=== PATIENT | female | born 1970 | race Caucasian/White ===

== ENCOUNTER → 2017-11-01 | Outpatient (CLI) | payer BC ==
--- NOTE | 2017-11-01 13:45 | MM ---
Reason for exam: screening (asymptomatic). Baseline mammogram. Physical Findings: Dr. Urias did not find any significant physical abnormalities on exam. MG 3D Screening Mammo W/Cad Bilateral CC and MLO view(s) were taken. The breast tissue is heterogeneously dense. This may lower the sensitivity of mammography. Small calcification nodule. There is no discrete abnormality including area of concern. No significant new findings when compared with previous films. These results were verbally communicated with the patient and result sheet given to the patient on 11/01/17. ASSESSMENT: Benign, BI-RAD 2 RECOMMENDATION: Routine screening mammogram of both breasts in 1 year.
--- NOTE | 2017-11-02 09:29 | WWHP ---
[facility] - HISTORY AND PHYSICAL DATE OF DICTATION: 11/01/2017 CHIEF COMPLAINT: The patient is here for her routine gynecologic exam and mammogram. HPI: This is a 46-year-old, G2, P2 with an LMP of 10/07/2018. Her is status post vasectomy. The patient is status post endometrial ablation for hypermenorrhea. She states her periods are regular every month, lasting 4 to 5 days with light to average flow. Her periods are trader than prior to the ablation. She is without gynecologic complaints. It has been about 5 years since her last pelvic exam. PAST MEDICAL HISTORY: Elevated cholesterol, IBS, and vitamin D deficiency. MEDICATIONS: Fenofibrate 160 mg daily, vitamin D2, 1.25 mg weekly. ALLERGIES: TO DEMEROL, WHICH CAUSED THROAT SWELLING. PAST SURGICAL HISTORY: Endometrial ablation in 2011, laparoscopic cholecystectomy in the past and jaw surgery in the past. PAST OB HISTORY: 2 vaginal deliveries. 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 She has no history of STDs. SOCIAL HISTORY: She briefly smoked but quit in high school. She has about 3 to 4 alcohol-containing drinks per month and denies drug use. 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 FAMILY HISTORY: Brother of heart problems including mitral valve prolapse and an enlarged heart. Grandparents had heart disease and father had CHF. Father also has type 2 diabetes. A grandfather had prostate cancer. REVIEW OF SYSTEMS: Weight has been stable, but she has been trying to lose weight. She denies respiratory, cardiac or GI problems. PHYSICAL EXAM: Blood pressure 143/87, height 5 feet 7 inches, weight 226 pounds, BMI 35. Temperature 97.3, pulse 78. This is a well-developed, heavyset white female, who is alert and oriented x3, in no acute distress. HEENT: Within normal limits. NECK: Supple without mass or thyromegaly. Chest and LUNGS: Clear to auscultation. HEART: Regular rate and rhythm. Breasts are without mass or discharge. Axillary exam is negative for adenopathy. Back negative for CVA tenderness. ABDOMEN: Soft, nontender, without palpable masses. Pelvic exam: Normal external genitalia. Cervix appears multiparous without lesions. Vagina appears normal. There is no evidence of prolapse. The uterus is multiparous, nongravid size and nontender. There are no palpable adnexal masses or tenderness. Rectal exam is negative for mass or tenderness and is negative for occult blood. Extremities nontender. IMPRESSION: 1. 46-year-old gynecologically healthy female. 2. The patient is status post endometrial ablation for hypermenorrhea and her periods have been trader after the procedure. 3. Mildly elevated blood pressure. PLAN: 1. Pap smear was performed. 2. Self breast examination was discussed. 3. Mammogram will be done today. 4. Her elevated blood pressure was discussed. I have recommended that she have her blood pressure checked on a regular basis and if it is elevated, she will follow up with Dr. Teresa for this. 5. Weight control was discussed with the patient. We have discussed the importance of good nutrition. I have also recommended that she consider Weight Watchers. 6. She will return in 1 year. MMODL / IJN: [id number] /
== END | disposition home or self-care (01) ==
LOC: WWCWWP 12:20
PROVIDERS: ATTEND Obstetrics & Gynecology
DX: Z12.31 Encounter for screening mammogram for malignant neoplasm of breast (principal)
CPT/HCPCS: 77063; 77067

== ENCOUNTER → 2019-06-04 | Outpatient (CLI) | payer BC ==
--- NOTE | 2019-06-04 14:45 | CT ---
EXAMINATION TYPE: CT urogram wo/w con DATE OF EXAM: 06/04/2019 COMPARISON: 04/27/2015 HISTORY: Rt flank pain, hematuria, history of renal stones CT DLP: 3238.8 mGycm Automated exposure control for dose reduction was used. CONTRAST: Performed without and with IV Contrast, patient injected with 100 mL of Isovue 300. FINDINGS: Limited CT sections are obtained the lung bases which are clear CT ABDOMEN: The appendix is normal. Liver spleen pancreas adrenal glands are normal. Gallbladder is s urgically absent. Loops of bowel within the abdomen without oral contrast are normal There is a cyst on the superior pole posterior left kidney measuring 1.1 cm and 18 Hounsfield units. There is a 0.5 cm nonobstructing renal stone at the inferior pole left kidney. There is a nonobstruct ing 0.3 cm calcification at the inferior pole right kidney. There is moderate right hydroureter. Alejandra yed images were obtained through the kidneys. Additional cortical renal cysts are evident on the left . Delayed images were obtained through the kidneys ureters and bladder. At the level of the prominent uterus the right ureter becomes narrowed. This may be extrinsic compression on the right ureter caus ing a moderate right hydroureter. IMPRESSION: 1. THERE IS LIKELY EXTRINSIC COMPRESSION ON THE DISTAL RIGHT HEMIPELVIS URETER FROM AN ENLARGED UTERU S CAUSING MODERATE RIGHT HYDROURETER AND DELAYED EXCRETION ON THE RIGHT RENAL COLLECTING SYSTEM SELENA RED TO THE LEFT. 2. NONOBSTRUCTING RENAL STONES ARE PRESENT AT THE INFERIOR POLES BILATERAL KIDNEYS DISCUSSED ABOVE. 3. MULTIPLE CORTICAL RENAL CYSTS PRESENT ON THE LEFT.
== END | disposition home or self-care (01) ==
LOC: RADCTMAIN 06:16
PROVIDERS: ATTEND Family Medicine
DX: N20.0 Calculus of kidney (principal); N28.1 Cyst of kidney, acquired
CPT/HCPCS: 74178; 74400; Q9967

== ENCOUNTER → 2019-07-14 | Outpatient (CLI) | payer BC | END | disposition home or self-care (01) | LOC: RADMAMWWP 10:00 | PROVIDERS: ATTEND Obstetrics & Gynecology | DX: Z53.9 Procedure and treatment not carried out, unspecified reason (principal) ==

== ENCOUNTER → 2019-07-31 | Outpatient (CLI) | payer BC ==
[2019-07-31 08:55] VITALS: BP 149/90; PULSE 91; RESP 18; TEMP 98.1; BMI 35.9
--- NOTE | 2019-07-31 09:35 | P.HPOB ---
History of Present Illness H&P Date: 07/31/19 Chief Complaint: The patient is here for her routine gynecologic exam. This is a 48-year-old with an LMP of 07/05/2019. The patient's is status post vasectomy. The patient states her menstrual periods are regular every month and fairly light since her endometrial ablation. She is without gynecologic complaints. She recently was having some right abdominal discomfort and was found to have a right hydroureter by CT scan in May which was found to be caused by kidney stones. She had a stent placed and was left in for 10 days. She has felt better since then. Review of Systems She has gained 3 pounds over the last year. She denies respiratory, cardiac, or GI problems. Past Medical History Past Medical History: Hyperlipidemia, Thyroid Disorder Additional Past Medical History / Comment(s): Kidney stones. IBS. 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 History of Any Multi-Drug Resistant Organisms: None Reported Past Surgical History: Cholecystectomy, Uterine Ablation Additional Past Surgical History / Comment(s): jaw sx. Surgery for kidney stones. Endometrial ablation 2011. Past Psychological History: No Psychological Hx Reported Smoking Status: Former smoker Past Alcohol Use History: Occasional (5 per month.) Additional Past Alcohol Use History / Comment(s): Quit smoking in high school. 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 - Past Family History Brother(s) Additional Family Medical History / Comment(s): Heart problems including an enlarged heart and mitral valve prolapse. . Father Family Medical History: Diabetes Mellitus Additional Family Medical History / Comment(s): Grandfather had prostate cancer. Grandparents also had heart disease. Medications and Allergies Home Medications Medication Instructions Recorded Confirmed Type Ibuprofen [Motrin] 800 mg PO Q6HR PRN #20 tab 04/27/15 07/31/19 Rx Ergocalciferol [Vitamin D2 1.25 mg PO DAILY 07/31/19 07/31/19 History (DRISDOL)] Fenofibrate 160 mg PO DAILY 07/31/19 07/31/19 History Hydrochlorothiazide 25 mg PO DAILY 07/31/19 07/31/19 History metroNIDAZOLE [Metrogel 1%] 1 applic TOPICAL DAILY 07/31/19 07/31/19 History Allergies Allergy/AdvReac Type Severity Reaction Status Date / Time meperidine HCl [From Demerol] Allergy Anaphylaxis Verified 07/31/19 08:55 Exam Vital Signs Temp Pulse Resp BP Pulse Ox 07/31/19 08:50 98.1 F 91 18 149/90 98 Intake and Output 07/30/19 07/31/19 07/31/19 22:59 06:59 14:59 Other: Weight 103.873 kg Height 5 feet 7 inches, weight 229 pounds, BMI 35.9. This is a well-developed well-nourished white female who is alert and oriented times 3 in no acute distress. HEENT: Within normal limits. NECK: Supple without mass or thyromegaly. CHEST AND LUNGS: Clear to auscultation. HEART: Regular rate and rhythm. BREASTS: Are without mass or discharge. AXILLARY EXAM: Negative for adenopathy. BACK: Negative for CVA tenderness. ABDOMEN: Soft, nontender, without palpable masses. PELVIC EXAM: Normal external genitalia. Cervix and vagina appear normal. There is a small amount of old menstrual type blood in the vagina. There is no unusual discharge. There is no evidence of prolapse. The uterus is midposition, nongravid size and nontender. There are no palpable adnexal masses or tenderness. RECTAL EXAM: Rectovaginal exam is negative for mass or tenderness and is negative for occult blood. EXTREMITIES: Nontender. IMPRESSION: 1. 48-year-old female whose is status post vasectomy with normal gynecologic exam. 2. History of kidney stones. PLAN: 1. Pap smear was deferred since she had a normal one on 11/01/2017. 2. Self breast awareness was discussed with the patient. 3. Screening mammogram is due and this is scheduled for 08/14/2019. The order slip was given to the patient for this. 4. Osteoporosis prevention was discussed. I have stressed the importance of adequate calcium, vitamin D and regular exercise. Recommended amounts of calcium and vitamin D were also discussed. 5. The patient will keep a menstrual calendar and call if menstrual problems. 6. She was advised to return in one year for her annual well woman exam.
== END | disposition home or self-care (01) ==
LOC: WWCWWP 08:24
PROVIDERS: ATTEND Obstetrics & Gynecology
DX: Z53.9 Procedure and treatment not carried out, unspecified reason (principal)

== ENCOUNTER → 2019-08-07 | Outpatient (CLI) | payer BC ==
--- NOTE | 2019-08-07 10:32 | US ---
EXAMINATION TYPE: US kidneys/renal and bladder DATE OF EXAM: 08/07/2019 COMPARISON: NONE CLINICAL HISTORY: N20.1 Calculus of ureter. Hx renal stones with stent within right kidney x 4 weeks ago. No pain today. EXAM MEASUREMENTS: Right Kidney: 11.1 x 4.6 x 4.9 cm Left Kidney: 10.7 x 4.9 x 5.2 cm Right Kidney: No hydronephrosis or masses seen Left Kidney: lower pole echogenic focus with slight shadow measures 0.6 cm. Lateral upper pole cysti c appearing lesion measuring 1.1 x 1.1 x 1.1 cm with increased through transmission. Bladder: Partially distended, anechoic Bilateral Jets seen There is no evidence for hydronephrosis at this point in time. No nephrolithiasis is seen. No manoj s are identified. The urinary bladder is anechoic. Bilateral ureteral jets are seen. IMPRESSION: Solitary nonobstructing 6 mm left renal calculus and benign-appearing 1.1 cm left renal cyst. No hydr onephrosis of either kidney.
== END | disposition home or self-care (01) ==
LOC: RADUSWWP 09:26
PROVIDERS: ATTEND Urology
DX: N20.0 Calculus of kidney (principal); N28.1 Cyst of kidney, acquired
CPT/HCPCS: 76770

== ENCOUNTER → 2019-08-14 | Outpatient (CLI) | payer BC ==
--- NOTE | 2019-08-15 15:06 | MM ---
Reason for exam: screening (asymptomatic). Last mammogram was performed 1 year and 9 months ago. Physical Findings: A clinical breast exam by your physician is recommended on an annual basis and results should be correlated with mammographic findings. MG Screening Mammo w CAD Bilateral CC and MLO view(s) were taken. Prior study comparison: November 01, 2017, bilateral MG 3d screening mammo w/cad. The breast tissue is heterogeneously dense. This may lower the sensitivity of mammography. Benign appearing calcifications in the right breast. No suspicious abnormality. No significant changes when compared with prior studies. ASSESSMENT: Benign, BI-RAD 2 RECOMMENDATION: Routine screening mammogram of both breasts in 1 year.
== END | disposition home or self-care (01) ==
LOC: RADMAMWWP 07:16
PROVIDERS: ATTEND Obstetrics & Gynecology
DX: Z12.31 Encounter for screening mammogram for malignant neoplasm of breast (principal)
CPT/HCPCS: 77067

== ENCOUNTER → 2019-08-14 | Outpatient (CLI) | payer BC ==
[2019-08-14 14:38] LABS: Basophils # (A) 0.1 k/uL (0-0.2); Basophils % (A) 1 %; Eosinophils # (A) 0.1 k/uL (0-0.7); Eosinophils % (A) 1 %; HCT 41.6 % (34.0-46.0); HGB 14.1 gm/dL (11.4-16.0); Lymphocytes # (A) 3.2 k/uL (1.0-4.8); Lymphocytes % (A) 33 %; MCH 30.4 pg (25.0-35.0); MCHC 33.9 g/dL (31.0-37.0); MCV 89.7 fL (80.0-100.0); Mean Platelet Volume 5.8; Monocytes # (A) 0.4 k/uL (0-1.0); Monocytes % (A) 4 %; Neutrophils # (A) 5.8 k/uL (1.3-7.7); Neutrophils % (A) 59 %; Platelet Count 323 k/uL (150-450); RBC 4.63 m/uL (3.80-5.40); RDW 12.7 % (11.5-15.5); WBC 9.7 k/uL (3.8-10.6)
[2019-08-14 14:52] LABS: African American GFR (CKD) >90 (>60 ml/min/1.73 sqM); Anion Gap 8 mmol/L; Blood Urea Nitrogen 12 mg/dL (7-17); Carbon Dioxide 26 mmol/L (22-30); Chloride 106 mmol/L (98-107); Potassium 3.9 mmol/L (3.5-5.1); Sodium 140 mmol/L (137-145)
== END | disposition home or self-care (01) ==
LOC: LABPAT 14:08
PROVIDERS: ATTEND Urology
DX: Z01.812 Encounter for preprocedural laboratory examination (principal); N20.0 Calculus of kidney
CPT/HCPCS: 36415; 80051; 82565; 84520; 85025

== ENCOUNTER 2019-08-27 08:52 | Day surgery (SDC) | payer BC ==
[2019-08-24 12:36] VITALS: BMI 35.2
--- NOTE | 2019-08-24 14:44 | P.HPIHPCON ---
History of Present Illness H&P Date: 08/27/19 Chief Complaint: left renal stone Ms Elvin is 48 yo female with hx of 7 mm left sided renal stone in the lower pole of the kidney. Of note she has hx of right sided ureteral stone and she is S/P right ureteroscopy. I discussed with her the options to address her left sided stone including observation, ESWL and ureteroscopy. I discussed risk and benefit of each. She agreed to proceed with left sided ESWL. I discussed with her the risk of bleeding, infection and renal hematoma Consent for Procedure: I have explained the operation/procedure to the patient, including the risks, benefits, side effects, alternative therapies (including not receiving the proposed treatment or service), the likelihood of the patient achieving his/her goals, and potential recuperation problems for the procedure/sedation/analgesia, as well as any blood products, if indicated. I also explained to the patient the risks, benefits and side effects of the alternatives, as well as the risks related to not receiving the proposed procedure, care, treatment, or services. - Constitutional Constitutional: Denies chills, Denies fever - Cardiovascular Cardiovascular: Denies chest pain, Denies edema - Gastrointestinal Gastrointestinal: Denies abdominal pain, Denies nausea, Denies vomiting Past Medical History Past Medical History: Hyperlipidemia, Thyroid Disorder Additional Past Medical History / Comment(s): Kidney stones. IBS. 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 History of Any Multi-Drug Resistant Organisms: None Reported Past Surgical History: Cholecystectomy, Uterine Ablation Additional Past Surgical History / Comment(s): jaw sx. Surgery for kidney stones. Endometrial ablation 2011. Past Anesthesia/Blood Transfusion Reactions: No Reported Reaction Smoking Status: Former smoker - Past Family History Brother(s) Additional Family Medical History / Comment(s): Heart problems including an enlarged heart and mitral valve prolapse. . Father Family Medical History: Diabetes Mellitus Additional Family Medical History / Comment(s): Grandfather had prostate cancer. Grandparents also had heart disease. Medications and Allergies Home Medications Medication Instructions Recorded Confirmed Type Fenofibrate 160 mg PO DAILY 07/31/19 08/24/19 History Hydrochlorothiazide 25 mg PO DAILY 07/31/19 08/24/19 History metroNIDAZOLE [Metrogel 1%] 1 applic TOPICAL DAILY 10/22/19 11/15/19 History Ergocalciferol [Vitamin D2] 50,000 unit PO VELÁSQUEZ 08/24/19 08/24/19 History Allergies Allergy/AdvReac Type Severity Reaction Status Date / Time meperidine HCl [From Demerol] Allergy Anaphylaxis, Verified 08/24/19 12:19 SWEELLING OF THROAT Surgical - Exam - General well developed, no distress - Respiratory normal expansion, normal respiratory effort - Psychiatric oriented to time, oriented to person, oriented to place Assessment and Plan Assessment: Ms. Oconnor is a 48 yo female with hx of 7mm left sided lower pole stone -OR for left sided ESWL
[~2019-08-27 08:52] MED LIST: DEXAMETHASONE SOD PHOSPHATE 10 MG/ML 1 ML VIAL IV ONE; HYDROmorphone 0.5 MG/0.5 ML SYRINGE IVP PRN; LACTATED RINGERS 1,000 ML IV SCH; LIDOCAINE 1% 20 ML VIAL (10MG/ML) FOR IV START INTRADERMA PRN; MIDAZOLAM 2 MG/2 ML VIAL IV PRN; ONDANSETRON 4 MG/2 ML VIAL IVP ONE; fentaNYL (PF) 50 MCG/ML 2 ML AMP IV PRN
--- NOTE | 2019-08-27 09:04 | XR ---
EXAMINATION TYPE: XR KUB DATE OF EXAM: 08/27/2019 CLINICAL DATA: 48 female prelithotripsy, left-sided kidney stones, [facility] COMPARISON: 04/27/2015 FINDINGS: Nonobstructive bowel gas pattern. Scattered mild stool. 7 mm left lower pole renal calculus. Additional punctate 2 mm adjacent left renal calculus. Cholecyst ectomy clips. IMPRESSION: 7 mm left lower pole renal calculus with adjacent punctate 2 mm calculus.
[2019-08-27 09:59] VITALS: TEMP 98
[2019-08-27] MEDS ORDERED: MIDAZOLAM 2 MG/2 ML VIAL ONE (10:14)
[2019-08-27] MEDS ORDERED: PROPOFOL 10 MG/ML 20 ML VIAL IV ONE (10:14)
[2019-08-27] MEDS ORDERED: KETOROLAC 30 MG/ML 1 ML VIAL ONE (10:14)
[2019-08-27] MEDS ORDERED: KETAMINE 10 MG/ML 20 ML VIAL ONE (10:14)
[2019-08-27] MEDS ORDERED: fentaNYL (PF) 50 MCG/ML 2 ML AMP ONE (10:14)
--- NOTE | 2019-08-27 10:50 | P.OP ---
Date of Procedure: 08/27/19 Preoperative Diagnosis: Left renal calculus Postoperative Diagnosis: Left renal calculus Procedure(s) Performed: Extracorporeal shockwave lithotripsy of left renal calculus Anesthesia: MAC Surgeon: Diaz Farmer Estimated Blood Loss (ml): 0 Pathology: none sent Condition: stable Disposition: PACU Indications for Procedure: The patient is a 48-year-old female who was recently discovered to have a 4 x 7 mm calculus in the lower pole of the left kidney. Treatment options and risks were reviewed with Dr. Grace and the patient has elected to proceed with ESWL. Description of Procedure: The patient was taken the operating suite where she was placed in the supine position on the fluoroscopy table. The left lower pole calculus was localized using biplanar fluoroscopy. Intravenous sedation was given. Lithotripsy was performed using the Dornier compact delta unit. A 2 minute pause occurred after 200 shocks. The patient received 1000 shocks at level 4 and 1500 at level 5 at a rate of 80 shocks per minute. There appeared to be fragmentation of the calculus. The anesthesia was reversed and she was returned to the recovery room in satisfactory condition. She will be jean claude on 09/[address] Grace at which time a KUB will be obtained.
[2019-08-27 11:21] VITALS: BP 125/78; PULSE 72; RESP 18
== END 2019-08-27 11:45 | disposition home or self-care (01) ==
LOC: ORWHC2ENDO 08:52
PROVIDERS: ATTEND Urology
DX: N20.0 Calculus of kidney (principal); I10 Essential (primary) hypertension; E78.5 Hyperlipidemia, unspecified; K58.9 Irritable bowel syndrome, unspecified; E07.9 Disorder of thyroid, unspecified; Z88.5 Allergy status to narcotic agent; Z90.49 Acquired absence of other specified parts of digestive tract; Z98.890 Other specified postprocedural states; Z87.442 Personal history of urinary calculi; Z87.891 Personal history of nicotine dependence; Z82.49 Family history of ischemic heart disease and other diseases of the circulatory system; Z83.3 Family history of diabetes mellitus; Z80.42 Family history of malignant neoplasm of prostate
CPT/HCPCS: 81025; 74018; 50590; J2250; J1100; J2405; J3010; J1885; J2704

== ENCOUNTER → 2019-09-02 | Outpatient (CLI) | payer BC ==
--- NOTE | 2019-09-02 10:19 | XR ---
EXAMINATION TYPE: XR KUB DATE OF EXAM: 09/02/2019 CLINICAL DATA: 48-year-old female left-sided kidney stones, post lithotripsy, [facility] COMPARISON: 08/27/2019 FINDINGS: Nonobstructive bowel gas pattern. No significant stool burden. Gentle levoconvex curvature. Cholecystectomy clips. Possible faint calcifications are suggested in the left mid abdomen measuring up to 4 mm. IMPRESSION: There may be a couple faint left lower pole renal calculi measuring up to 4 mm, smaller and less defi alana as compared to 08/27/2019.
== END | disposition home or self-care (01) ==
LOC: RADXRMAIN 09:45
PROVIDERS: ATTEND Urology
DX: N20.0 Calculus of kidney (principal); Z98.890 Other specified postprocedural states
CPT/HCPCS: 74018

== ENCOUNTER → 2019-12-25 | Outpatient (CLI) | payer BC ==
--- NOTE | 2019-12-25 15:40 | MR ---
EXAMINATION TYPE: MR brain wo/w con DATE OF EXAM: 12/25/2019 COMPARISON: NONE HISTORY: Blurred vision, aura TECHNIQUE: Multiplanar, multisequence images of the brain and brainstem is performed without and with IV contras t, utilizing 10 mL intravenous Gadavist . FINDINGS: Diffusion weighted images demonstrate no evidence of a recent infarct or other diffusion ab normality. There is no worrisome extra-axial fluid collection. The ventricular system and cisternal spaces are normal in size and appearance. The brain volume is age appropriate. Scattered foci of T2 hyperintensity is seen throughout the white matter bilaterally. Approximately 20-25 scattered lesion s are seen. For reference roughly 11 x 8 mm lesion superficial posterior left frontal white matter at level of clay radiata or 2 adjacent lesions noted axial image 20. Lesions are nonspecific in appea radha and distribution. Midline structures demonstrate normal morphology. The craniocervical junction appears within normal limits. Post contrast images demonstrate no abnormal enhancement. The dural venous sinuses appear pa tent. The visualized sinuses are clear and the globes are intact. IMPRESSION: [id number] nonspecific white matter changes. Demyelinating disease needs to be excl uded in patient this age. Other etiologies such as altered vascular mechanics related to product of m igraine headaches is in differential. No suspicious enhancement noted.
== END | disposition home or self-care (01) ==
LOC: RADMRIMAIN 14:19
PROVIDERS: ATTEND Family Medicine
DX: R90.89 Other abnormal findings on diagnostic imaging of central nervous system (principal)
CPT/HCPCS: 70553; A9585

== ENCOUNTER → 2020-02-11 | Outpatient (CLI) | payer BC ==
[2020-02-11 10:09] LABS: Basophils # (A) 0.1 k/uL (0-0.2); Basophils % (A) 1 %; Eosinophils # (A) 0.2 k/uL (0-0.7); Eosinophils % (A) 2 %; HCT 46.9 % (34.0-46.0); HGB 15.1 gm/dL (11.4-16.0); Lymphocytes # (A) 2.2 k/uL (1.0-4.8); Lymphocytes % (A) 30 %; MCH 29.4 pg (25.0-35.0); MCHC 32.2 g/dL (31.0-37.0); MCV 91.4 fL (80.0-100.0); Mean Platelet Volume 7.4; Monocytes # (A) 0.4 k/uL (0-1.0); Monocytes % (A) 6 %; Neutrophils # (A) 4.4 k/uL (1.3-7.7); Neutrophils % (A) 59 %; Platelet Count 284 k/uL (150-450); RBC 5.13 m/uL (3.80-5.40); WBC 7.4 k/uL (3.8-10.6)
[2020-02-11 12:48] LABS: Erythrocyte Sedimentation Rate 2 mm/hr (0-20)
[2020-02-11 16:09] LABS: Valproic Acid (Depakene) 54.8 ug/mL (50.0-100.0)
[2020-02-11 16:57] LABS: African American GFR (CKD) 87.6 (60.0-200.0); Albumin 4.6 g/dL (3.80-4.90); Albumin/Globulin Ratio 1.92 (1.60-3.17); Anion Gap 8.9 mmol/L (4.00-12.00); BUN/Creat Ratio 15.56 Ratio (12.00-20.00); Calcium 10.3 mg/dL (8.7-10.3); Carbon Dioxide 28.1 mmol/L (21.6-31.8); Globulin 2.4 g/dL (1.6-3.3); Non-African American GFR(CKD) 75.6 (60.0-200.0); Potassium 4.2 mmol/L (3.5-5.5); Total Bilirubin 0.4 mg/dL (0.3-1.2)
== END | disposition home or self-care (01) ==
LOC: LABWHC1 09:08
PROVIDERS: ATTEND Psychiatry & Neurology Neurology
DX: Z03.89 Encounter for observation for other suspected diseases and conditions ruled out (principal); G43.709 Chronic migraine without aura, not intractable, without status migrainosus
CPT/HCPCS: 36415; 80053; 80164; 85025; 85652; 86038; 86431

== ENCOUNTER → 2020-05-21 | Outpatient (CLI) | payer BC ==
[2020-05-21 14:57] LABS: Basophils # (A) 0.1 k/uL (0-0.2); Basophils % (A) 1 %; Eosinophils # (A) 0.1 k/uL (0-0.7); Eosinophils % (A) 1 %; HCT 47.9 % (34.0-46.0); HGB 15.8 gm/dL (11.4-16.0); Lymphocytes # (A) 2.8 k/uL (1.0-4.8); Lymphocytes % (A) 31 %; MCV 94.2 fL (80.0-100.0); Mean Platelet Volume 7.5; Monocytes # (A) 0.5 k/uL (0-1.0); Monocytes % (A) 5 %; Neutrophils # (A) 5.2 k/uL (1.3-7.7); Neutrophils % (A) 59 %; Platelet Count 271 k/uL (150-450); RBC 5.08 m/uL (3.80-5.40); RDW 13.1 % (11.5-15.5); WBC 8.9 k/uL (3.8-10.6)
[2020-05-21 20:03] LABS: Valproic Acid (Depakene) 85.5 ug/mL (50.0-100.0)
[2020-05-21 20:16] LABS: Total Bilirubin 0.4 mg/dL (0.3-1.2)
== END | disposition home or self-care (01) ==
LOC: LABWHC1 14:08
PROVIDERS: ATTEND Psychiatry & Neurology Neurology
DX: G40.019 Localization-related (focal) (partial) idiopathic epilepsy and epileptic syndromes with seizures of localized onset, intractable, without status epilepticus (principal); K74.69 Other cirrhosis of liver
CPT/HCPCS: 36415; 80164; 82247; 84450; 84460; 85025

== ENCOUNTER → 2020-06-23 | Outpatient (CLI) | payer BC ==
[2020-06-23 16:43] LABS: Basophils # (A) 0.1 k/uL (0-0.2); Basophils % (A) 1 %; Eosinophils # (A) 0.1 k/uL (0-0.7); Eosinophils % (A) 1 %; HCT 43.3 % (34.0-46.0); HGB 14.2 gm/dL (11.4-16.0); Lymphocytes # (A) 2.7 k/uL (1.0-4.8); Lymphocytes % (A) 28 %; MCH 30.1 pg (25.0-35.0); MCHC 32.8 g/dL (31.0-37.0); MCV 91.8 fL (80.0-100.0); Mean Platelet Volume 7.5; Monocytes # (A) 0.4 k/uL (0-1.0); Monocytes % (A) 4 %; Neutrophils # (A) 6.2 k/uL (1.3-7.7); Neutrophils % (A) 64 %; Platelet Count 341 k/uL (150-450); RBC 4.71 m/uL (3.80-5.40); WBC 9.7 k/uL (3.8-10.6)
[2020-06-24 01:51] LABS: Total Bilirubin 0.3 mg/dL (0.2-1.2)
== END | disposition home or self-care (01) ==
LOC: LABWHC1 15:53
PROVIDERS: ATTEND Psychiatry & Neurology Neurology
DX: K74.69 Other cirrhosis of liver (principal); R53.83 Other fatigue
CPT/HCPCS: 36415; 82247; 84450; 84460; 85025

== ENCOUNTER → 2020-08-18 | Outpatient (CLI) | payer BC | END | disposition home or self-care (01) | LOC: LABWHC1 15:55 | PROVIDERS: ATTEND Ophthalmology | DX: E05.00 Thyrotoxicosis with diffuse goiter without thyrotoxic crisis or storm (principal); H53.8 Other visual disturbances | CPT/HCPCS: 36415; 84439; 84443; 84445; 84481; 86376 ==

== ENCOUNTER → 2021-03-11 | Outpatient (CLI) | payer BC ==
--- NOTE | 2021-03-12 04:49 | MR ---
EXAMINATION TYPE: MR brain wo/w con DATE OF EXAM: 03/11/2021 COMPARISON: 12/25/2019 HISTORY: Melanoma, headaches, vision changes. CONTRAST: Standard multiplanar, multisequence MRI departmental protocol utilizing 10 mL intravenous Gadavist ga dolinium contrast. Ventricles and sulci appear fairly normal. There is no mass effect nor midline shift. There is no sig n of intracranial hemorrhage. Diffusion images show no evidence of an acute infarct. Corpus callosum is intact. Brainstem is intact. On the T2 and FLAIR images there are clustered high s ignal white matter foci in the frontal lobes bilaterally. This is more on the right side and total nu mber is approximately 15. Most of these measure less than 5 mm. There is normal enhancement of the venous sinuses. There is no pathologic enhancement. Pituitary stal k is in the midline. Optic chiasm appears normal. Sella turcica appears normal. IMPRESSION: Multiple white matter high signal foci appear not significantly different than old exam and could rel ate to microvascular ischemia. Demyelinating disease not excluded. No evidence of an infarct. No evid ence of metastatic disease.
== END | disposition home or self-care (01) ==
LOC: RADMRIMAIN 16:58
PROVIDERS: ATTEND Internal Medicine Hematology & Oncology
DX: C43.9 Malignant melanoma of skin, unspecified (principal); G37.9 Demyelinating disease of central nervous system, unspecified
CPT/HCPCS: 70553; A9585

== ENCOUNTER → 2021-05-13 | Outpatient (CLI) | payer BC ==
[2021-05-13 11:48] VITALS: BP 134/82; PULSE 85; RESP 18; TEMP 98.3
--- NOTE | 2021-05-13 12:46 | P.HPOB ---
History of Present Illness H&P Date: 05/13/21 Chief Complaint: The patient is here for her routine gynecologic exam and ma mmogram. This is a 50-year-old with an LMP of January 2021. The patient's is status post vasectomy. Her menstrual periods have been regular and light following her endometrial ablation, however after being started on Keytruda (chemo) in October for metastatic melanoma, menstrual periods have become very infrequent. She has been experiencing mild hot flashes which seem to actually be getting better. She is without gynecologic complaints. Review of Systems The patient has gained 14 pounds over the last year. She denies respiratory, cardiac, or G.I. problems. Past Medical History Past Medical History: Cancer, Hyperlipidemia, Thyroid Disorder Additional Past Medical History / Comment(s): Stage III metastatic melanoma with unknown primary. Kidney stones. IBS. 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 History of Any Multi-Drug Resistant Organisms: None Reported Past Surgical History: Cholecystectomy, Uterine Ablation Additional Past Surgical History / Comment(s): jaw sx. Surgery for kidney stones. Endometrial ablation 2011. Lymph node removal in the right inguinal region positive for metastatic melanoma 09/2020. Past Psychological History: No Psychological Hx Reported Smoking Status: Former smoker Past Alcohol Use History: Occasional (1 or 2 per month) Additional Past Alcohol Use History / Comment(s): Quit smoking in high school. 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 - Past Family History Brother(s) Additional Family Medical History / Comment(s): Heart problems including an enlarged heart and mitral valve prolapse. . Father Family Medical History: Diabetes Mellitus Additional Family Medical History / Comment(s): Grandfather had prostate cancer. Grandparents also had heart disease. Medications and Allergies Home Medications Medication Instructions Recorded Confirmed Type Fenofibrate 160 mg PO DAILY 07/31/19 05/13/21 History hydroCHLOROthiazide 25 mg PO DAILY 07/31/19 05/13/21 History metroNIDAZOLE [Metrogel 1%] 1 applic TOPICAL DAILY 07/31/19 05/13/21 History Ergocalciferol [Vitamin D2] 50,000 unit PO VELÁSQUEZ 08/24/19 05/13/21 History Amitriptyline HCl 10 mg PO HS 05/13/21 05/13/21 History Butalbit/Acetamin/Caff/Codeine 1 - 2 cap PO Q4HR PRN 05/13/21 05/13/21 History [Fioricet-Cod [id number] Cap] Citalopram Hydrobromide 40 mg PO HS 05/13/21 05/13/21 History [Citalopram HBr] Levothyroxine Sodium [Synthroid] 75 mcg PO DAILY 05/13/21 05/13/21 History Ondansetron [Zofran] 4 mg PO Q12HR PRN 05/13/21 05/13/21 History levETIRAcetam [Keppra] 750 mg PO BID 05/13/21 05/13/21 History Allergies Allergy/AdvReac Type Severity Reaction Status Date / Time meperidine HCl [From Demerol] Allergy Anaphylaxis, Verified 05/13/21 11:35 SWEELLING OF THROAT Exam Vital Signs Temp Pulse Resp BP Pulse Ox 05/13/21 11:42 98.3 F 85 18 134/82 96 Intake and Output 05/12/21 05/13/21 05/13/21 22:59 06:59 14:59 Other: Weight 110.223 kg Height 5 feet 7 inches, weight 243 pounds, BMI 30.1. This is a well-developed well-nourished heavyset white female who is alert and oriented times 3 in no acute distress. HEENT: Within normal limits. NECK: Supple without mass or thyromegaly. CHEST AND LUNGS: Clear to auscultation. HEART: Regular rate and rhythm. BREASTS: Are without mass or discharge. AXILLARY EXAM: Negative for adenopathy. BACK: Negative for CVA tenderness. ABDOMEN: Soft, nontender, without palpable masses. PELVIC EXAM: Normal external genitalia. Cervix and vagina appear normal. There is no unusual discharge. There is no evidence of prolapse. The uterus is midposition, multiparous, nongravid size and nontender. There are no palpable adnexal masses or tenderness. There is no palpable inguinal adenopathy. RECTAL EXAM: Rectovaginal exam is negative for mass or tenderness and is negative for occult blood. EXTREMITIES: Nontender. IMPRESSION: 1. 50-year-old perimenopausal female whose is status post vasectomy with normal gynecologic exam. 2. The perimenopausal change may or may not have been induced with the chemotherapy which she is now taking for her melanoma. PLAN: 1. Pap smear cotest was performed. 2. Self breast awareness was discussed with the patient. We have also discussed symptoms that can be associated with inflammatory breast cancer. 3. Screening mammogram will be done today. 4. Osteoporosis prevention was discussed. I have stressed the importance of adequate calcium, vitamin D and regular exercise. Recommended amounts of calcium and vitamin D were also discussed. 5. The patient will keep a menstrual calendar and call if she is having menstrual problems or if bleeding after 12 months of amenorrhea. 6. She has not gotten a Covid vaccination, but did have Covid last year. She will still consider being vaccinated for Covid. 7. Colorectal cancer screening was discussed. We've discussed options includin g colonoscopy and Cologuard testing. She will discuss the options with Dr. Teresa. 8. She was advised to return in one year for her annual well woman exam.
== END ==
LOC: WWCWWP 11:06
PROVIDERS: ATTEND Obstetrics & Gynecology
DX: Z12.31 Encounter for screening mammogram for malignant neoplasm of breast (principal); Z01.419 Encounter for gynecological examination (general) (routine) without abnormal findings; E78.5 Hyperlipidemia, unspecified; Z87.891 Personal history of nicotine dependence; C79.9 Secondary malignant neoplasm of unspecified site; Z79.899 Other long term (current) drug therapy; Z88.8 Allergy status to other drugs, medicaments and biological substances
CPT/HCPCS: 77063; 77067

== ENCOUNTER → 2021-06-17 | Outpatient (CLI) | payer BC ==
[2021-06-17 22:44] LABS: Basophils # (A) 0.11 X 10*3/uL (0.00-0.10); Basophils % (A) 1.3 %; Eosinophils % (A) 3.4 %; HCT 40.8 % (37.2-46.3); HGB 14.1 g/dL (12.0-15.0); Lymphocytes # (A) 3.72 X 10*3/uL (0.90-5.00); Lymphocytes % (A) 42.5 %; MCH 30.9 pg (27.0-32.0); MCHC 34.6 g/dL (32.0-37.0); MCV 89.5 fL (80.0-97.0); Monocytes # (A) 0.57 X 10*3/uL (0.20-1.00); Monocytes % (A) 6.5 %; Neutrophils # (A) 4.03 X 10*3/uL (1.80-7.70); Platelet Count 339 X 10*3/uL (140-440); RBC 4.56 X 10*6/uL (4.10-5.20); RDW 14.2 % (11.5-14.5); WBC 8.76 X 10*3/uL (4.50-10.00)
[2021-06-18 06:16] LABS: Albumin 4.6 g/dL (3.80-4.90); Albumin/Globulin Ratio 1.64 (1.60-3.17); BUN/Creat Ratio 13.33 Ratio (12.00-20.00); Calcium 10.1 mg/dL (8.7-10.3); Globulin 2.8 g/dL (1.6-3.3); Non-African American GFR(CKD) 75.1 (60.0-200.0); Total Bilirubin 0.4 mg/dL (0.2-1.2); Total Protein 7.4 g/dL (6.2-8.2)
== END | disposition home or self-care (01) ==
LOC: LABWHC1 15:57
PROVIDERS: ATTEND Psychiatry & Neurology Neurology
DX: K74.60 Unspecified cirrhosis of liver (principal); E08.610 Diabetes mellitus due to underlying condition with diabetic neuropathic arthropathy; R53.83 Other fatigue
CPT/HCPCS: 36415; 80053; 80177; 85025

== ENCOUNTER → 2021-07-21 | Outpatient (CLI) | payer BC ==
--- NOTE | 2021-07-21 08:55 | CT ---
EXAMINATION TYPE: CT chest w con DATE OF EXAM: 07/21/2021 COMPARISON: NONE HISTORY: Cough. History of melanoma. CT DLP: 494.9 mGycm. Automated Exposure Control for Dose Reduction was Utilized. TECHNIQUE: CT scan of the thorax is performed following with IV Contrast, patient injected with 100 mL of Isovue 300. FINDINGS: LUNGS: The lungs are grossly clear, there is no concerning parenchymal mass or nodule identified. T here is no pleural effusion or pneumothorax seen. The tracheobronchial tree is patent. MEDIASTINUM: There are no greater than 1 cm hilar or mediastinal lymph nodes. No pericardial effusi on is seen. Heart size upper limits of normal. OTHER: Cholecystectomy clips are seen. Benign calcification right breast axial image 18. IMPRESSION: No suspicious acute or chronic pulmonary process.
== END | disposition home or self-care (01) ==
LOC: RADCTMAIN 07:22
PROVIDERS: ATTEND Internal Medicine Hematology & Oncology
DX: R05.9 Cough, unspecified (principal); Z85.820 Personal history of malignant melanoma of skin
CPT/HCPCS: 82565; 84520; 71260; 36415; Q9967

== ENCOUNTER → 2022-03-18 | Outpatient (CLI) | payer BC ==
[~2022-03-18] MED LIST changes: +BEBTELOVIMAB (EUA) 175 MG/2 ML VIAL IV ONE; -DEXAMETHASONE SOD PHOSPHATE 10 MG/ML 1 ML VIAL IV ONE; -HYDROmorphone 0.5 MG/0.5 ML SYRINGE IVP PRN; -LACTATED RINGERS 1,000 ML IV SCH; -LIDOCAINE 1% 20 ML VIAL (10MG/ML) FOR IV START INTRADERMA PRN; -MIDAZOLAM 2 MG/2 ML VIAL IV PRN; -ONDANSETRON 4 MG/2 ML VIAL IVP ONE; +SODIUM CHLORIDE 0.9% 500 ML 500 ML in EMPTY BAG 1 BAG IV PRN; -fentaNYL (PF) 50 MCG/ML 2 ML AMP IV PRN
[2022-03-18 13:38] VITALS: RESP 16
[2022-03-18 14:03] VITALS: BP 124/82; PULSE 80; TEMP 97.8
== END ==
LOC: PROCWHC3 12:57
PROVIDERS: ATTEND Family Medicine
DX: U07.1 COVID-19 (principal); N18.9 Chronic kidney disease, unspecified; Z28.310 Unvaccinated for COVID-19; Z88.5 Allergy status to narcotic agent; Z87.891 Personal history of nicotine dependence
CPT/HCPCS: Q0222; M0222

== ENCOUNTER → 2022-04-27 | Outpatient (CLI) | payer BC | LOC: CPPFTMAIN 14:39 | PROVIDERS: ATTEND Family Medicine | DX: R06.00 Dyspnea, unspecified (principal); Z88.5 Allergy status to narcotic agent; Z87.891 Personal history of nicotine dependence | CPT/HCPCS: 94060; 94726; 94729 ==

== ENCOUNTER → 2022-05-12 | Outpatient (CLI) | payer BC ==
[2022-05-12 08:53] LABS: African American GFR (CKD) >90 (>60 ml/min/1.73 sqM); Blood Urea Nitrogen 11 mg/dL (7-17); Non-African American GFR(CKD) 84 (>60 ml/min/1.73 sqM)
--- NOTE | 2022-05-12 22:37 | CT ---
EXAMINATION TYPE: CT ChestAbdPelvis w con DATE OF EXAM: 05/12/2022 INDICATION: Melanoma. COMPARISON: 07/21/[address] DLP: 2201 mGycm CONTRAST: Performed with Oral Contrast and with IV Contrast, patient injected with 100ml mL of Isovue 300. TECHNIQUE: Axial images at 5 mm thick sections. Reconstructed images in the coronal plane. Delayed images through the kidneys. FINDINGS: CT CHEST: Portion of the thyroid visualized is normal. No suspicious lung nodules or focal infiltrates are present. No enlarged mediastinal or hilar adenopathy is evident. The ascending aorta diameter at the level of the main pulmonary artery is 3.4 cm. The main pulmonary artery diameter at the bifurcation is 0.[address] ABDOMEN: Liver: Mild fatty infiltration. No discrete masses Spleen: Normal Pancreas: Normal Adrenal glands: The adrenal glands are normal. Gallbladder: Surgically absent Kidneys: No masses are evident. No hydronephrosis is present. No cysts are present. Delayed images were obtained through the kidneys, renal cortical cysts are better visualized.. Aorta: Normal Inferior vena cava: Normal. CT PELVIS: Loops of bowel within the abdomen and pelvis are normal. There are loops of bowel which are incom pletely distended or lack oral contrast limiting their evaluation. Appendix: Normal as visualized. Urinary bladder: Normal. Genitourinary structures: Uterus is bulky. There appears to be a fibroid extending superiorly from th e uterus. Adnexal regions are within normal limits Osseous structures: No suspicious lytic or sclerotic lesions. IMPRESSIONS: 1. No suspicious nodularity identified to suggest metastatic melanoma.
== END | disposition home or self-care (01) ==
LOC: RADCTMAIN 08:01
PROVIDERS: ATTEND Internal Medicine Hematology & Oncology
DX: C43.8 Malignant melanoma of overlapping sites of skin (principal)
CPT/HCPCS: 82565; 84520; 71260; 74177; 36415; Q9967

== ENCOUNTER → 2022-08-05 | Outpatient (CLI) | payer BC ==
--- NOTE | 2022-08-06 10:04 | CA ---
Transthoracic Echo Report Name: Bhumi Oconnor Age: 51 Gender: F : 1970 Exam Date: 08/05/2022 14:49 Exam Location: [facility] Ht (in): 67 Wt (lb): 235 Ordering Physician: Tre Teresa DO Attending/Referring Phys: Silvana Geller [facility] Tech Kenya Brown RDCS Procedure CPT: Indications: R06.00 DYSPNEA, UNSPECIFIED Cardiac Hx: Technical Quality: Fair Contrast 1: Total Dose (mL): Contrast 2: Total Dose (mL): MEASUREMENTS (Male / Female) Normal Values 2D ECHO LV Diastolic Diameter PLAX 5.0 cm 4.2 - 5.9 / 3.9 - 5.3 cm LV Systolic Diameter PLAX 3.3 cm IVS Diastolic Thickness 1.2 cm 0.6 - 1.0 / 0.6 - 0.9 cm LVPW Diastolic Thickness 1.2 cm 0.6 - 1.0 / 0.6 - 0.9 cm LV Relative Wall Thickness 0.5 RV Internal Dim ED PLAX 2.7 cm LA Volume 33.9 cm??? 18 - 58 / 22 - 52 cm??? M-MODE Aortic Root Diameter MM 2.5 cm LA Systolic Diameter MM 4.1 cm LA Ao Ratio MM 1.6 AV Cusp Separation MM 1.9 cm DOPPLER AV Peak Velocity 117.1 cm/s AV Peak Gradient 5.5 mmHg MV Area PHT 2.7 cm??? Mitral E Point Velocity 68.7 cm/s Mitral A Point Velocity 85.4 cm/s Mitral E to A Ratio 0.8 MV Deceleration Time 277.0 ms TR Peak Velocity 266.1 cm/s TR Peak Gradient 28.3 mmHg Right Ventricular Systolic Press 33.1 mmHg FINDINGS Left Ventricle Mildly increased left ventricular wall thickness. Normal left ventricular systolic function with no obvious regional wall motion abnormalities. Left ventricular ejection fraction is estimated at 55-60 %. Normal left ventricular diastolic filling pattern. Right Ventricle Normal right ventricular size and function. Right ventricular systolic pressure within normal limits. Right Atrium Normal right atrial size. Left Atrium Normal left atrial size. Mitral Valve Structurally normal mitral valve. Mild mitral regurgitation. Aortic Valve No aortic valve stenosis or regurgitation. Tricuspid Valve Structurally normal tricuspid valve. Mild tricuspid regurgitation. Pulmonic Valve Trace pulmonic regurgitation. Pericardium No pericardial effusion. Aorta Normal size aortic root and proximal ascending aorta. CONCLUSIONS Normal LV size and systolic function Previewed by: Dr. Eric Wheatley MD (Electronically Signed) Final Date: 06 August 2022 10:03
== END | disposition home or self-care (01) ==
LOC: RADECHMAIN 14:40
PROVIDERS: ATTEND Family Medicine
DX: R06.00 Dyspnea, unspecified (principal)
CPT/HCPCS: 93306

== ENCOUNTER → 2023-03-25 | Outpatient (CLI) | payer BC ==
--- NOTE | 2023-03-27 15:02 | CT ---
EXAMINATION TYPE: CT ChestAbdPelvis w con CT DLP: 2132.3 mGycm, Automated exposure control for dose reduction was used. DATE OF EXAM: 03/25/2023 4:07 PM COMPARISON: 05/12/2022 , 07/21/2021. CLINICAL INDICATION:Female, 52 years old with history of R51.9; , Melanoma Stage III Technique: Multiple axial images of the chest, abdomen, and pelvis were obtained. Two-dimensional cor onal and sagittal reconstructions were obtained. Contrast used:100 cc mL of Isovue 300 with IV Contrast, Oral contrast used: with Oral Contrast Findings: CHEST: LUNGS/ PLEURA: Stable left lower lobe superior segment peripheral pulmonary conquest nodule measuring 5 mm series 5 image 19 dating back to at least 07/21/2021 AIRWAY: Patent and unremarkable. HEART: Size within normal limits. MEDIASTINUM: No gross evidence of adenopathy. VASCULATURE: No aortic aneurysm. MUSCULOSKELETAL: No acute osseous abnormalities. SOFT TISSUES/LYMPH NODES: Unremarkable. LOWER NECK: No significant findings. ABDOMEN: ABDOMEN LIVER: Arterial enhancing 7 mm focus in the right hepatic lobe is unchanged from prior GALLBLADDER AND BILE DUCTS: The gallbladder surgically absent. PANCREAS: Unremarkable. SPLEEN: Unremarkable. ADRENAL GLANDS: Unremarkable. KIDNEYS AND URETERS: No evidence of hydronephrosis. Nonobstructing left renal calculi measuring up to 5 mm. No right renal calculus. Bilateral renal cysts. PELVIS BLADDER: Unremarkable REPRODUCTIVE: Unremarkable. ABDOMEN & PELVIS STOMACH AND BOWEL: No evidence of bowel obstruction. PERITONEUM: No evidence of pneumoperitoneum or free fluid. VASCULATURE: No evidence of aortic aneurysm. MUSCULOSKELETAL: No acute osseous abnormalities LYMPH NODES: No gross evidence for lymphadenopathy. SOFT TISSUE/ABDOMINAL WALL: Unremarkable IMPRESSION: 1. No evidence for mass or lymphadenopathy. 2. Stable left lower lobe superior segment nodule. 3. Nonobstructing left renal calculi. 4. Stable arterial phase enhancing focus within the right hepatic lobe measuring 7 mm when compared to 07/21/2021. Suggesting benign etiology.
== END | disposition home or self-care (01) ==
LOC: RADCTMAIN 14:23
PROVIDERS: ATTEND Internal Medicine Hematology & Oncology
DX: C43.8 Malignant melanoma of overlapping sites of skin (principal); N20.0 Calculus of kidney; R91.1 Solitary pulmonary nodule
CPT/HCPCS: 71260; 74177; Q9967

== ENCOUNTER → 2024-03-23 | Outpatient (CLI) | payer BC ==
--- NOTE | 2024-03-23 13:54 | CT ---
EXAMINATION TYPE: CT ChestAbdPelvis w con DATE OF EXAM: 03/23/2024 COMPARISON: 03/25/2023 HISTORY: f/u melanoma CT DLP: 2396.6 mGycm Automated exposure control for dose reduction was used. CONTRAST: CT scan of the chest, abdomen and pelvis is performed with Oral Contrast and with IV Contrast, patien t injected with 100 mL of Isovue 300. CT chest: There is no suspicious lung mass or nodule. Stable 4 to 5 mm subpleural parenchymal nodule in the lef t lower lobe. There is no abnormal airspace/consolidative density or abnormal interstitial density. There is no pleural effusion, pleural thickening or pneumothorax. The great vessels and chest are normal there is no mediastinal, hilar or axillary adenopathy. No focal osseous lesions are seen. CT abdomen and pelvis: There is surgical absence of the gallbladder.. There is no biliary ductal dilatation. There is a stable small 7 mm enhancing nodule in the right lobe of the liver. There is mild fatty inf iltration. There is no solid renal mass or hydronephrosis. There is no retroperitoneal adenopathy or hemorrhage in the caliber of the abdominal aorta is normal. There is a stable 5 to 6 mm nonobstructing left maricel l calculus. The bowel loops are normal in caliber and there is no dilatation or obstruction. No inflammatory bansal ges identified in the bowel wall and mesentery. There is no free intracranial air or fluid. There is no pelvic mass or adenopathy. There is no free fluid within the pelvis. There is a stable fi broid uterus No focal osseous lesions are seen. Soft tissue the abdomen and pelvis are normal. IMPRESSION: No evidence of recurrent or metastatic disease. Stable incidental findings as described above.
== END | disposition home or self-care (01) ==
LOC: RADCTMAIN 11:30
PROVIDERS: ATTEND Internal Medicine Hematology & Oncology
DX: C43.9 Malignant melanoma of skin, unspecified (principal); I89.0 Lymphedema, not elsewhere classified; E06.3 Autoimmune thyroiditis; Z71.3 Dietary counseling and surveillance
CPT/HCPCS: 71260; 74177; Q9967

== ENCOUNTER 2024-10-24 17:09 | Inpatient (IN) | payer BC ==
[2024-10-24] MEDS: SODIUM CHLORIDE 0.9% 1,000 ML IV STA ×3 (17:51→19:24)
[2024-10-24] MEDS: PANTOPRAZOLE 40 MG/10 ML VIAL IVP STA (17:54)
[2024-10-24] MEDS: ONDANSETRON 4 MG/2 ML VIAL IVP STA (17:54)
[2024-10-24] MEDS: KETOROLAC 15 MG/ML 1 ML VIAL IVP STA (17:55)
[2024-10-24 18:17] LABS: Basophils # (A) 0.1 k/uL (0-0.2); Basophils % (A) 0 %; Eosinophils % (A) 0 %; HCT 41.1 % (34.0-46.0); Lymphocytes # (A) 2.2 k/uL (1.0-4.8); Lymphocytes % (A) 7 %; MCH 29.9 pg (25.0-35.0); MCHC 34.1 g/dL (31.0-37.0); MCV 87.8 fL (80.0-100.0); Mean Platelet Volume 7.3; Monocytes # (A) 1.2 k/uL (0-1.0); Monocytes % (A) 4 %; Neutrophils # (A) 29.4 k/uL (1.3-7.7); Neutrophils % (A) 88 %; Platelet Count 254 k/uL (150-450); RBC 4.68 m/uL (3.80-5.40); RDW 13.6 % (11.5-15.5); WBC 33.4 k/uL (3.8-10.6)
[2024-10-24 18:46] LABS: ALT 117 U/L (4-34); AST 67 U/L (14-36); African American GFR (CKD) 72 (>60 ml/min/1.73 sqM); Albumin 4.1 g/dL (3.5-5.0); Alkaline Phosphatase 94 U/L (38-126); Anion Gap 9 mmol/L; Blood Urea Nitrogen 21 mg/dL (7-17); Calcium 10.1 mg/dL (8.4-10.2); Carbon Dioxide 24 mmol/L (22-30); Chloride 103 mmol/L (98-107); Glucose 103 mg/dL (74-99); Lipase 40 U/L (23-300); Non-African American GFR(CKD) 62 (>60 ml/min/1.73 sqM); Potassium 3.9 mmol/L (3.5-5.1); Sodium 136 mmol/L (137-145); Total Bilirubin 1.4 mg/dL (0.2-1.3); Total Protein 7.3 g/dL (6.3-8.2)
[2024-10-24 19:00] LABS: Appearance,Urine Cloudy (Clear); Bilirubin,Urine Negative (Negative); Blood,Urine Large (Negative); Color,Urine Yellow; Glucose,Urine (UA) Negative (Negative); Ketones,Urine Negative (Negative); Leukocyte Esterase,Urine Moderate (Negative); Mucus,Urine Rare /hpf; Nitrite,Urine Negative (Negative); PH, Urine 5.5 (5.0-8.0); Protein,Urine 1+ (Negative); RBC,Urine 60 /hpf (0-5); Specific Gravity,Urine 1.021 (1.001-1.035); Squamous Epithelial Cell,Urine 4 /hpf (0-4); WBC,Urine 16 /hpf (0-5)
[2024-10-24] MEDS ORDERED: VANCOMYCIN IV PER PHARMACY 1 EACH MISC MISCELLANE PRN (19:02)
[2024-10-24] MEDS ORDERED: MORPHINE SULFATE 4 MG/ML SYRINGE IV PRN (19:23)
[2024-10-24] MEDS ORDERED: NALOXONE 0.4 MG/ML 1 ML VIAL IV PRN (19:23)
[2024-10-24] MEDS: CEFEPIME 2 GM in SODIUM CHLORIDE 0.9% 100 ML IVPB SCH (19:26)
--- NOTE | 2024-10-24 19:31 | ED ---
General Adult HPI - General Chief complaint: Urogenital Stated complaint: kidney stone Time Seen by Provider: 10/24/24 17:28 Source: patient, RN notes reviewed, old records reviewed Mode of arrival: ambulatory Limitations: no limitations - History of Present Illness Initial comments: Patient is a 53-year-old female who presents emergency department complaining of kidney stones. Was sent by her urologist, Dr. Cotton for laboratory studies, ur inalysis, as well as admission for ureteral stenting tomorrow. Has a 5 mm proximal left ureteral stone that has been causing issues for the last 4 to 5 days. Patient also has a past medical history remarkable for metastatic melanoma currently in remission, hypertension, hyperlipidemia, thyroid disorder. Presents for admission to the hospital. Denies any significant fevers. Endorses some pain but no significant nausea. Denies any other acute complaints at this time. Presents for further evaluation. Describes a left-sided abdominal pain that is sharp in the left flank. Radiation to the mid back as well as left groin. - Related Data Home Medications Medication Instructions Recorded Confirmed Acetaminophen Tab [Tylenol Tab] 500 mg PO Q6H PRN 10/24/24 10/24/24 Botox(Unknown Dose) 1 dose INJ Q112D 10/24/24 10/24/24 HYDROcodone/APAP 5-325MG [Doss 1 tab PO Q6H PRN 10/24/24 10/24/24 5-325] Ibuprofen [Motrin Ib] 400 mg PO Q6H PRN 10/24/24 10/24/24 Levothyroxine Sodium [Synthroid] 175 mcg PO DAILY 10/24/24 10/24/24 Losartan Potassium 100 mg PO DAILY 10/24/24 10/24/24 Ondansetron Odt [Zofran Odt] 4 mg PO Q8H PRN 10/24/24 10/24/24 Rosuvastatin [Crestor] 10 mg PO HS 10/24/24 10/24/24 Tamsulosin HCl [Flomax] 0.4 mg PO DAILY@1300 10/24/24 10/24/24 Vitamin D3(Unknown Dose) 1 tab PO DAILY 10/24/24 10/24/24 Allergies Allergy/AdvReac Type Severity Reaction Status Date / Time meperidine HCl [From Demerol] Allergy Anaphylaxis, Verified 10/24/24 19:59 SWELLING OF THROAT Review of Systems ROS Statement: Those systems with pertinent positive or pertinent negative responses have been documented in the HPI. Review of Systems: CONST: Denies fever EYES: Denies blurry vision ENT: Denies nasal congestion C/V: Denies Chest pain RESP: Denies shortness of breath GI: Endorses abdominal pain : Denies dysuria SKIN: Denies rash. MSK: Denies joint pain. NEURO: Denies headache ROS Other: All systems not noted in ROS Statement are negative. Past Medical History Past Medical History: Cancer, Hyperlipidemia, Hypertension, Thyroid Disorder Additional Past Medical History / Comment(s): Stage III metastatic melanoma with unknown primary-IMMUNOTHERAPY. Kidney stones. IBS. History of Any Multi-Drug Resistant Organisms: None Reported Past Surgical History: Cholecystectomy, Uterine Ablation Additional Past Surgical History / Comment(s): jaw sx. Surgery for kidney stones. Lymph node removal in the right inguinal region positive for metastatic melanoma 09/2020. Past Anesthesia/Blood Transfusion Reactions: No Reported Reaction Past Psychological History: No Psychological Hx Reported Smoking Status: Never smoker Past Alcohol Use History: Occasional Past Drug Use History: None Reported - Past Family History Brother(s) Additional Family Medical History / Comment(s): Heart problems including an enlarged heart and mitral valve prolapse. . Father Family Medical History: Diabetes Mellitus Additional Family Medical History / Comment(s): Grandfather had prostate cancer. Grandparents also had heart disease. General Exam - General Exam Comments Initial Comments: General: Appears in mild to moderate distress secondary to left flank pain. HEAD: Normal with no signs of head trauma. EYES: EOMI ENT: Hearing grossly intact, normal oropharynx. RESPIRATORY: Clear breath sounds bilaterally. No wheezes, rales, or rhonchi. C/V: Regular rate and rhythm. S1 and S2 auscultated, no edema, peripheral pulses 2+ and intact throughout ABD: Abdomen soft, nondistended. Tender to palpation in the left flank. No guarding or rebound tenderness. No peritoneal signs. No CVA tenderness to percussion. EXT: Normal range of motion, no obvious deformity SKIN: No rashes or lesions observed on exposed skin. NEURO: Alert and oriented x 4. Limitations: no limitations Course Vital Signs 10/24/24 10/24/24 17:13 19:35 Temperature 98.6 F 98.2 F Pulse Rate 108 H 99 Respiratory 18 18 Rate Blood Pressure 138/75 131/70 O2 Sat by Pulse 94 L 97 Oximetry Medical Decision Making - Medical Decision Making Was pt. sent in by a medical professional or institution (, RICKEY, ENVIRONMENTAL SERVICES DIRECTOR, urgent care, hospital, or senior living...) When possible be specific @ -Sent by her urologist, Dr. Grace for admission. Did you speak to anyone other than the patient for history (EMS, parent, family, police, friend...)? What history was obtained from this source @ -No Did you review nursing and triage notes (agree or disagree)? Why? @ -I reviewed and agree with nursing and triage notes Were old charts reviewed (outside hosp., previous admission, EMS record, old EKG, old radiological studies, urgent care reports/EKG's, senior living records)? Report findings @ -No old charts were reviewed Differential Diagnosis (chest pain, altered mental status, abdominal pain women, abdominal pain men, vaginal bleeding, weakness, fever, dyspnea, syncope, headache, dizziness, GI bleed, back pain, seizure, CVA, palpatations, mental health, musculoskeletal)? @ -Septic kidney stone, UTI, ureterolithiasis. This list is not all inclusive. EKG interpreted by me (3pts min.). @ -None done X-rays interpreted by me (1pt min.). @ -None done CT interpreted by me (1pt min.). @ -None done U/S interpreted by me (1pt. min.). @ -None done What testing was considered but not performed or refused? (CT, X-rays, U/S, labs)? Why? @ -Considered imaging however after discussion with patient's urologist, this will be held at this time as he states he does not need further imaging. What meds were considered but not given or refused? Why? @ -None Did you discuss the management of the patient with other professionals (professionals i.e. RICKEY Vick, ENVIRONMENTAL SERVICES DIRECTOR, lab, RT, psych nurse, health and social care teacher, cutting table operator first, t eacher, licensed loan officer assistant, case briefer)? Give summary @ -Discussed with urologist, Dr. Grace who agrees that no imaging is required at this time and requests labs, urinalysis, as well as admission onto his service. I discussed the results of the laboratory studies with him as well and he was in agreement plan for medical consult as well as initiation of the broad- spectrum antibiotics. Patient hemodynamically stable at time of admission. Patient made n.p.o. after midnight. Discussed the consult with Dr. Ye of [facility] who accepted the consult. Was smoking cessation discussed for >3mins.? @ -No Was critical care preformed (if so, how long)? @ -yes Were there social determinants of health that impacted care today? How? (Homelessness, low income, unemployed, alcoholism, drug addiction, tr ansportation, low edu. Level, literacy, decrease access to med. care, residential, rehab)? @ -No Was there de-escalation of care discussed even if they declined (Discuss DNR or withdrawal of care, Hospice)? DNR status @ -No What co-morbidities impacted this encounter? (DM, HTN, Smoking, COPD, CAD, Cancer, CVA, ARF, Chemo, Hep., AIDS, mental health diagnosis, sleep apnea, morbid obesity)? @ -None Was patient admitted / discharged? Hospital course, mention meds given and route, prescriptions, significant lab abnormalities, going to OR and other pertinent info. @ -Patient presents with suspected septic left ureterolithiasis. We will obtain basic labs. No imaging required at this time as patient's urologist has access to all the patient's required imaging. Discussed this with Dr. Grace who is in agreement plan for laboratory studies. I will notify him of any significant findings. Vitals currently within acceptable limits. Patient given analgesia medications, Zofran, IV fluids. Patient's laboratory studies remarkable for leukocytosis of 33.4. Lactic acid within normal limits. Remainder the laboratory studies relatively unremarkable. Urinalysis remarkable for hematuria as well as white blood cells in the urine. On reevaluation, patient is resting comfortably. In no acute distress. We discussed her laboratory studies findings. Patient will be admitted on IV antibiotics. Patient was in agreement this plan. Due to the significant white count elevation, patient will be placed on both vancomycin as well as cefepime. Blood culture obtained and sent. Urine culture sent. I updated Dr. Grace and as the patient is hemodynamically stable, he is in agreement this plan. Discussed with the consulting medical provider Dr. Hopkins who accepted the consult. Patient made n.p.o. after midnight Undiagnosed new problem with uncertain prognosis? @ -No Drug Therapy requiring intensive monitoring for toxicity (Heparin, Nitro, Insulin, Cardizem)? @ -No Were any procedures done? @ -No Diagnosis/symptom? @ -Septic left-sided ureterolithiasis Acute, or Chronic, or Acute on Chronic? @ -Acute Uncomplicated (without systemic symptoms) or Complicated (systemic symptoms)? @ -Complicated Side effects of treatment? @ -No Exacerbation, Progression, or Severe Exacerbation? @ -No Poses a threat to life or bodily function? How? (Chest pain, [place], [place], pneumonia, PE, COPD, DKA, ARF, appy, cholecystitis, CVA, Diverticulitis, Homicidal, Suicidal, threat to staff... and all critical care pts) @ -Yes - Lab Data Result diagrams: 10/24/24 17:47 10/24/24 17:47 Lab Results 10/24/24 10/24/24 10/24/24 Range/Units 17:47 17:47 17:47 WBC 33.4 H (3.8-10.6) k/uL RBC 4.68 (3.80-5.40) m/uL Hgb 14.0 (11.4-16.0) gm/dL Hct 41.1 (34.0-46.0) % MCV 87.8 (80.0-100.0) fL MCH 29.9 (25.0-35.0) pg MCHC 34.1 (31.0-37.0) g/dL RDW 13.6 (11.5-15.5) % Plt Count 254 (150-450) k/uL MPV 7.3 Neutrophils % 88 % Lymphocytes % 7 % Monocytes % 4 % Eosinophils % 0 % Basophils % 0 % Neutrophils # 29.4 H (1.3-7.7) k/uL Lymphocytes # 2.2 (1.0-4.8) k/uL Monocytes # 1.2 H (0-1.0) k/uL Eosinophils # 0.0 (0-0.7) k/uL Basophils # 0.1 (0-0.2) k/uL Manual Slide Review Performed Sodium 136 L (137-145) mmol/L Potassium 3.9 (3.5-5.1) mmol/L Chloride 103 (98-107) mmol/L Carbon Dioxide 24 (22-30) mmol/L Anion Gap 9 mmol/L BUN 21 H (7-17) mg/dL Creatinine 1.04 (0.52-1.04) mg/dL Est GFR (CKD-EPI)AfAm 72 (>60 ml/min/1.73 sqM) Est GFR (CKD-EPI)NonAf 62 (>60 ml/min/1.73 sqM) Glucose 103 H (74-99) mg/dL Plasma Lactic Acid [place] 1.3 (0.7-2.0) mmol/L Calcium 10.1 (8.4-10.2) mg/dL Total Bilirubin 1.4 H (0.2-1.3) mg/dL AST 67 H (14-36) U/L ALT 117 H (4-34) U/L Alkaline Phosphatase 94 (38-126) U/L Total Protein 7.3 (6.3-8.2) g/dL Albumin 4.1 (3.5-5.0) g/dL Lipase 40 (23-300) U/L Urine Color Urine Appearance (Clear) Urine pH (5.0-8.0) Ur Specific [place] (1.001-1.035) Urine Protein (Negative) Urine Glucose (UA) (Negative) Urine Ketones (Negative) Urine Blood (Negative) Urine Nitrite (Negative) Urine Bilirubin (Negative) Urine Urobilinogen (<2.0) mg/dL Ur Leukocyte Esterase (Negative) Urine RBC (0-5) /hpf Urine WBC (0-5) /hpf Ur Squamous Epith Cells (0-4) /hpf Urine Mucus (None) /hpf Urine HCG, Qual (Not Detectd) 10/24/24 10/24/24 Range/Units 18:03 18:03 WBC (3.8-10.6) k/uL RBC (3.80-5.40) m/uL Hgb (11.4-16.0) gm/dL Hct (34.0-46.0) % MCV (80.0-100.0) fL MCH (25.0-35.0) pg MCHC (31.0-37.0) g/dL RDW (11.5-15.5) % Plt Count (150-450) k/uL MPV Neutrophils % % Lymphocytes % % Monocytes % % Eosinophils % % Basophils % % Neutrophils # (1.3-7.7) k/uL Lymphocytes # (1.0-4.8) k/uL Monocytes # (0-1.0) k/uL Eosinophils # (0-0.7) k/uL Basophils # (0-0.2) k/uL Manual Slide Review Sodium (137-145) mmol/L Potassium (3.5-5.1) mmol/L Chloride (98-107) mmol/L Carbon Dioxide (22-30) mmol/L Anion Gap mmol/L BUN (7-17) mg/dL Creatinine (0.52-1.04) mg/dL Est GFR (CKD-EPI)AfAm (>60 ml/min/1.73 sqM) Est GFR (CKD-EPI)NonAf (>60 ml/min/1.73 sqM) Glucose (74-99) mg/dL Plasma Lactic Acid [place] (0.7-2.0) mmol/L Calcium (8.4-10.2) mg/dL Total Bilirubin (0.2-1.3) mg/dL AST (14-36) U/L ALT (4-34) U/L Alkaline Phosphatase (38-126) U/L Total Protein (6.3-8.2) g/dL Albumin (3.5-5.0) g/dL Lipase (23-300) U/L Urine Color Yellow Urine Appearance Cloudy H (Clear) Urine pH 5.5 (5.0-8.0) Ur Specific [place] 1.021 (1.001-1.035) Urine Protein 1+ H (Negative) Urine Glucose (UA) Negative (Negative) Urine Ketones Negative (Negative) Urine Blood Large H (Negative) Urine Nitrite Negative (Negative) Urine Bilirubin Negative (Negative) Urine Urobilinogen 4.0 (<2.0) mg/dL Ur Leukocyte Esterase Moderate H (Negative) Urine RBC 60 H (0-5) /hpf Urine WBC 16 H (0-5) /hpf Ur Squamous Epith Cells 4 (0-4) /hpf Urine Mucus Rare H (None) /hpf Urine HCG, Qual Not Detected (Not Detectd) Critical Care Time Critical Care Time: Yes Total Critical Care Time: 30 Disposition Clinical Impression: Ureterolithiasis, UTI (urinary tract infection) Disposition: ADMITTED IP TO THIS [facility] Condition: Serious Time of Disposition: 19:31
[2024-10-24] MEDS: VANCOMYCIN 1,750 MG in SODIUM CHLORIDE 0.9% 500 ML 500 ML IVPB STA (20:03)
[2024-10-24] MEDS: ATORVASTATIN 20 MG TAB PO SCH (21:04)
[2024-10-24] MEDS: KETOROLAC 15 MG/ML 1 ML VIAL IVP PRN (21:05)
[2024-10-24] MEDS: HEPARIN SODIUM,PORCINE 5,000 UNIT/ML 1 ML VIAL SQ SCH (23:15)
[2024-10-25] MEDS: ACETAMINOPHEN TAB 325 MG TAB PO PRN (03:42)
--- NOTE | 2024-10-25 08:00 | P.GSHP ---
History of Present Illness Chief Complaint: Left ureteral stone This is a 53-year-old female that presented to my office yesterday with a 5 mm left-sided proximal stone, patient was also experiencing fever of 102 associated with nausea and vomiting. Does have previous history of recurrent kidney stones and has required ureteroscopy with holmium laser in the past address them she denies any gross hematuria or dysuria. Given the obstructing stone and the fever she was advised to go to the ER, urinalysis in the ER was consistent with a UTI, she did have leukocytosis of 33,000. Hemodynamically she was stable. She is having intractable left flank pain with nausea and vomiting - Constitutional Constitutional: Reports chills, Reports fever - Cardiovascular Cardiovascular: Denies chest pain, Denies shortness of breath - Respiratory Respiratory: Denies cough, Denies 7 - Gastrointestinal Gastrointestinal: Reports nausea, Reports vomiting - Genitourinary (Female) Genitourinary: Reports flank pain, Denies dysuria, Denies hematuria Past Medical History Past Medical History: Cancer, Hyperlipidemia, Hypertension, Thyroid Disorder Additional Past Medical History / Comment(s): Stage III metastatic melanoma with unknown primary-IMMUNOTHERAPY. Kidney stones. IBS. History of Any Multi-Drug Resistant Organisms: None Reported Past Surgical History: Cholecystectomy, Uterine Ablation Additional Past Surgical History / Comment(s): jaw sx. Surgery for kidney stones. Lymph node removal in the right inguinal region positive for metastatic melanoma 09/2020. Past Anesthesia/Blood Transfusion Reactions: No Reported Reaction Past Psychological History: No Psychological Hx Reported Smoking Status: Never smoker Past Alcohol Use History: Occasional Past Drug Use History: None Reported - Past Family History Brother(s) Additional Family Medical History / Comment(s): Heart problems including an enlarged heart and mitral valve prolapse. . Father Family Medical History: Diabetes Mellitus Additional Family Medical History / Comment(s): Grandfather had prostate cancer. Grandparents also had heart disease. Medications and Allergies Home Medications Medication Instructions Recorded Confirmed Type Acetaminophen Tab [Tylenol Tab] 500 mg PO Q6H PRN 10/24/24 10/24/24 History Botox(Unknown Dose) 1 dose INJ Q112D 10/24/24 10/24/24 History HYDROcodone/APAP 5-325MG [Edwards 1 tab PO Q6H PRN 10/24/24 10/24/24 History 5-325] Ibuprofen [Motrin Ib] 400 mg PO Q6H PRN 10/24/24 10/24/24 History Levothyroxine Sodium [Synthroid] 175 mcg PO DAILY 10/24/24 10/24/24 History Losartan Potassium 100 mg PO DAILY 10/24/24 10/24/24 History Ondansetron Odt [Zofran Odt] 4 mg PO Q8H PRN 10/24/24 10/24/24 History Rosuvastatin [Crestor] 10 mg PO HS 10/24/24 10/24/24 History Tamsulosin HCl [Flomax] 0.4 mg PO DAILY@1300 10/24/24 10/24/24 History Vitamin D3(Unknown Dose) 1 tab PO DAILY 10/24/24 10/24/24 History Allergies Allergy/AdvReac Type Severity Reaction Status Date / Time meperidine HCl [From Demerol] Allergy Anaphylaxis, Verified 10/24/24 19:59 SWELLING OF THROAT Surgical - Exam Vital Signs Temp Pulse Resp BP Pulse Ox 98.6 F 108 H 18 138/75 94 L 10/24/24 17:13 10/24/24 17:13 10/24/24 17:13 10/24/24 17:13 10/24/24 17:13 - General no distress, moderate pain - Eyes normal ocular movement, no pale - ENT normal nares, normal mucosa - Respiratory normal expansion, normal respiratory effort - Abdomen Abdomen: soft, non tender, no distended - Psychiatric oriented to time, oriented to person, oriented to place Results - Labs 10/24/24 17:47 10/24/24 17:47 Abnormal Lab Results - Last 24 Hours (Table) 10/24/24 10/24/24 10/24/24 Range/Units 17:47 17:47 18:03 WBC 33.4 H (3.8-10.6) k/uL Neutrophils # 29.4 H (1.3-7.7) k/uL Monocytes # 1.2 H (0-1.0) k/uL Sodium 136 L (137-145) mmol/L BUN 21 H (7-17) mg/dL Glucose 103 H (74-99) mg/dL Total Bilirubin 1.4 H (0.2-1.3) mg/dL AST 67 H (14-36) U/L ALT 117 H (4-34) U/L Urine Appearance Cloudy H (Clear) Urine Protein 1+ H (Negative) Urine Blood Large H (Negative) Ur Leukocyte Esterase Moderate H (Negative) Urine RBC 60 H (0-5) /hpf Urine WBC 16 H (0-5) /hpf Urine Mucus Rare H (None) /hpf Diabetes panel 10/24/24 Range/Units 17:47 Sodium 136 L (137-145) mmol/L Potassium 3.9 (3.5-5.1) mmol/L Chloride 103 (98-107) mmol/L Carbon Dioxide 24 (22-30) mmol/L BUN 21 H (7-17) mg/dL Creatinine 1.04 (0.52-1.04) mg/dL Glucose 103 H (74-99) mg/dL Calcium 10.1 (8.4-10.2) mg/dL AST 67 H (14-36) U/L ALT 117 H (4-34) U/L Alkaline Phosphatase 94 (38-126) U/L Total Protein 7.3 (6.3-8.2) g/dL Albumin 4.1 (3.5-5.0) g/dL Calcium panel 10/24/24 Range/Units 17:47 Calcium 10.1 (8.4-10.2) mg/dL Albumin 4.1 (3.5-5.0) g/dL Pituitary panel 10/24/24 Range/Units 17:47 Sodium 136 L (137-145) mmol/L Potassium 3.9 (3.5-5.1) mmol/L Chloride 103 (98-107) mmol/L Carbon Dioxide 24 (22-30) mmol/L BUN 21 H (7-17) mg/dL Creatinine 1.04 (0.52-1.04) mg/dL Glucose 103 H (74-99) mg/dL Calcium 10.1 (8.4-10.2) mg/dL Adrenal panel 10/24/24 Range/Units 17:47 Sodium 136 L (137-145) mmol/L Potassium 3.9 (3.5-5.1) mmol/L Chloride 103 (98-107) mmol/L Carbon Dioxide 24 (22-30) mmol/L BUN 21 H (7-17) mg/dL Creatinine 1.04 (0.52-1.04) mg/dL Glucose 103 H (74-99) mg/dL Calcium 10.1 (8.4-10.2) mg/dL Total Bilirubin 1.4 H (0.2-1.3) mg/dL AST 67 H (14-36) U/L ALT 117 H (4-34) U/L Alkaline Phosphatase 94 (38-126) U/L Total Protein 7.3 (6.3-8.2) g/dL Albumin 4.1 (3.5-5.0) g/dL Assessment and Plan Assessment: 53-year-old female with a 5 mm left-sided proximal septic stone. Discussed given the obstructing stone and the UTI I do recommend proceeding with a stent insertion risk-benefit and rationale were discussed in details Keep n.p.o. OR for cystoscopy and a left stent insertion
[2024-10-25] MEDS: LOSARTAN 50 MG TAB PO SCH (08:48)
[2024-10-25] MEDS: LEVOTHYROXINE 88 MCG TAB PO SCH (08:48)
[2024-10-25] MEDS: IV FLUID CONTINUATION 1,000 ML IV ONE ×2 (10:36→12:00)
[2024-10-25] MEDS: LACTATED RINGERS 1,000 ML BAG IV STA (10:37)
[2024-10-25 10:39] LABS: HCT 27.8 % (37.2-46.3); HGB 8.8 g/dL (12.0-15.0); MCHC 31.7 g/dL (32.0-37.0); MCV 91.7 FL (80.0-97.0); NRBC Per 100 WBC 0 X 10*3/uL (0.00-0.01); Platelet Count 177 X 10*3/uL (140-440); RBC 3.03 X 10*6/uL (4.10-5.20); RDW 14.3 % (11.5-14.5); WBC 18.65 X 10*3/uL (4.50-10.00)
[2024-10-25] MEDS: DEXAMETHASONE SOD PHOSPHATE 4 MG/ML 1 ML VIAL IVP STA (10:48)
[2024-10-25] MEDS: FAMOTIDINE 20 MG/2 ML VIAL IV STA (10:49)
[2024-10-25] MEDS: ONDANSETRON 4 MG/2 ML VIAL IVP PRN (10:49)
[2024-10-25 11:27] LABS: ALT 57 U/L (8-44); AST 27 U/L (13-35); Albumin 2.4 g/dL (3.8-4.9); Alkaline Phosphatase 49 U/L (41-126); Blood Urea Nitrogen 12.9 mg/dL (9.0-27.0); Calcium 6.2 mg/dL (8.7-10.3); Carbon Dioxide 15.4 mmol/L (21.6-31.8); Chloride 120 mmol/L (96-109); Globulin 1.6 g/dL (1.6-3.3); Glucose 68 mg/dL (70-110); Potassium 2.6 mmol/L (3.5-5.5); Sodium 142 mmol/L (135-145); Total Bilirubin 0.4 mg/dL (0.3-1.2)
[2024-10-25 11:35] LABS: Basophils # (A) 0.01 X 10*3/uL (0.00-0.10); Basophils % (A) 0.1 %; Eosinophils # (A) 0.03 X 10*3/uL (0.04-0.35); Eosinophils % (A) 0.2 %; Lymphocytes % (A) 9.7 %; Monocytes # (A) 1.11 X 10*3/uL (0.20-1.00); Neutrophils # (A) 15.49 X 10*3/uL (1.80-7.70); Neutrophils % (A) 82.9 %; RBC Morphology Normal (Normal)
[2024-10-25] MEDS: VANCOMYCIN 1,750 MG in SODIUM CHLORIDE 0.9% 500 ML 500 ML IVPB SCH (12:15)
[2024-10-25] MEDS ORDERED: KETAMINE HCL IN 0.9 % NACL 50 MG/5 ML SYRINGE ONE (13:10)
[2024-10-25] MEDS ORDERED: MIDAZOLAM 2 MG/2 ML VIAL ONE (13:10)
[2024-10-25] MEDS ORDERED: PROPOFOL 10 MG/ML 20 ML VIAL IV ONE (13:10)
[2024-10-25] MEDS ORDERED: fentaNYL (PF) 50 MCG/ML 2 ML AMP ONE (13:10)
--- NOTE | 2024-10-25 13:20 | P.CONS ---
History of Present Illness - Reason for Consult Consult date: 10/25/24 Medical management - History of Present Illness History of present illness; patient is a 53-year-old lady with past medical history significant for nephrolithiasis who presented the ER because of fever, nausea and vomiting. Patient was initially seen at urology office for similar complaints, was found to have a left sided proximal left ureteral stone. Urology told the patient to come to the ER as patient might be needing stent placement. Patient was complaining of high-grade fevers. There was no complaint of abdominal pain. There was complaint nausea and vomiting. Denies chest pain or shortness of breath. There was no complaint of orthopnea or PND. In the ER patient was worked up Initial lab work done in the ER showed WBC 23.4, hemoglobin 14, platelet count 254, sodium 160, potassium 3.9, BUN 11, creatinine 0 1.04 lactate 1.3, bilirubin 1.4, AST 16, ALT 1 17 UA done showed moderate blood, leukocyte esterase positive, urine WBC 16 Patient admitted to urology service REVIEW OF SYSTEMS: CONSTITUTIONAL: As mentioned above HEENT: No recent visual problems or hearing problems. Denied any sore throat. CARDIOVASCULAR: No chest pain, orthopnea, PND, no palpitations, no syncope. PULMONARY: No shortness of breath, no cough, no hemoptysis. GASTROINTESTINAL: As mentioned above NEUROLOGICAL: No headaches, no weakness, no numbness. HEMATOLOGICAL: Denies any bleeding or petechiae. GENITOURINARY: Denies any burning micturition, frequency, or urgency. MUSCULOSKELETAL/RHEUMATOLOGICAL: Denies any joint pain, swelling, or any muscle pain. ENDOCRINE: Denies any polyuria or polydipsia. The rest of the 14-point review of systems is negative. PHYSICAL EXAMINATION: GENERAL: The patient is alert and oriented x3, not in any acute distress. Well developed, well nourished. HEENT: Pupils are round and equally reacting to light. EOMI. No scleral icterus. No conjunctival pallor. Normocephalic, atraumatic. No pharyngeal erythema. No thyromegaly. CARDIOVASCULAR: S1 and S2 present. No murmurs, rubs, or gallops. PULMONARY: Chest is clear to auscultation, no wheezing or crackles. ABDOMEN: Soft, nontender, nondistended, normoactive bowel sounds. No palpable organomegaly. MUSCULOSKELETAL: No joint swelling or deformity. EXTREMITIES: No cyanosis, clubbing, or pedal edema. NEUROLOGICAL: Gross neurological examination did not reveal any focal deficits. SKIN: No rashes. Assessment and plan Sepsis Obstructive uropathy Acute pyelonephritis Hypertension hyperlipidemia Hypothyroidism Monitor vital signs Monitor CBC Monitor CMP Ordered blood cultures Ordered urine culture Continue IV cefepime and vancomycin Ordered IV fluids Urology on board, planning cystoscopy today Resume home meds Labs and medication were reviewed.. Continue same treatment. Continue with symptomatic treatment. Resume home medication. Monitor labs and vitals. DVT and GI prophylaxis. Further recommendations as per clinical course of the patient Dictation was produced using [employer] dictation software. please excuse any grammatical, word or spelling errors. Past Medical History Past Medical History: Cancer, Hyperlipidemia, Hypertension, Thyroid Disorder Additional Past Medical History / Comment(s): Stage III metastatic melanoma with unknown primary-IMMUNOTHERAPY. Kidney stones. IBS. History of Any Multi-Drug Resistant Organisms: None Reported Past Surgical History: Cholecystectomy, Uterine Ablation Additional Past Surgical History / Comment(s): jaw sx. Surgery for kidney stones. Lymph node removal in the right inguinal region positive for metastatic melanoma 09/2020. Past Anesthesia/Blood Transfusion Reactions: No Reported Reaction Past Psychological History: No Psychological Hx Reported Smoking Status: Never smoker Past Alcohol Use History: Occasional Past Drug Use History: None Reported - Past Family History Brother(s) Additional Family Medical History / Comment(s): Heart problems including an enlarged heart and mitral valve prolapse. . Father Family Medical History: Diabetes Mellitus Additional Family Medical History / Comment(s): Grandfather had prostate cancer. Grandparents also had heart disease. Medications and Allergies Home Medications Medication Instructions Recorded Confirmed Type Acetaminophen Tab [Tylenol Tab] 500 mg PO Q6H PRN 10/24/24 10/25/24 History HYDROcodone/APAP 5-325MG [[place] 1 tab PO Q6H PRN 10/24/24 10/25/24 History 5-325] Ibuprofen [Motrin Ib] 400 mg PO Q6H PRN 10/24/24 10/25/24 History Levothyroxine Sodium [Synthroid] 175 mcg PO DAILY 10/24/24 10/25/24 History Losartan Potassium 100 mg PO DAILY 10/24/24 10/25/24 History Ondansetron Odt [Zofran Odt] 4 mg PO Q8H PRN 10/24/24 10/25/24 History Rosuvastatin [Crestor] 10 mg PO HS 10/24/24 10/25/24 History Tamsulosin HCl [Flomax] 0.4 mg PO DAILY@1300 10/24/24 10/25/24 History Vitamin D3(Unknown Dose) 1 tab PO DAILY 10/24/24 10/25/24 History Botox 200 units INJ Q112D 10/25/24 10/25/24 History Allergies Allergy/AdvReac Type Severity Reaction Status Date / Time meperidine HCl [From Demerol] Allergy Anaphylaxis, Verified 10/25/24 10:13 SWELLING OF THROAT Physical Exam Vitals: Vital Signs Temp Pulse Pulse Resp BP BP Pulse Ox 10/25/24 10:28 98.6 F 97 20 142/67 96 10/25/24 10:00 98.3 F 91 18 143/83 98 10/25/24 08:44 99.0 F 92 18 143/82 96 10/25/24 06:58 89 18 123/73 96 10/25/24 03:44 98.3 F 10/25/24 03:25 100 18 111/72 98 10/25/24 00:51 92 18 115/65 96 10/24/24 22:10 99.0 F 100 18 129/69 96 10/24/24 19:35 98.2 F 99 18 131/70 97 10/24/24 17:13 98.6 F 108 H 18 138/75 94 L Intake and Output 10/24/24 10/25/24 10/25/24 22:59 06:59 14:59 Other: Weight 113.398 kg 113.398 kg Results CBC & Chem 7: 10/25/24 07:30 10/25/24 11:44 Labs: Abnormal Lab Results - Last 24 Hours (Table) 10/24/24 10/24/24 10/24/24 Range/Units 17:47 17:47 18:03 WBC 33.4 H (3.8-10.6) k/uL RBC (4.10-5.20) X 10*6/uL Hgb (12.0-15.0) g/dL Hct (37.2-46.3) % MCHC (32.0-37.0) g/dL Neutrophils # 29.4 H (1.3-7.7) k/uL Monocytes # 1.2 H (0-1.0) k/uL Sodium 136 L (137-145) mmol/L BUN 21 H (7-17) mg/dL Glucose 103 H (74-99) mg/dL Total Bilirubin 1.4 H (0.2-1.3) mg/dL AST 67 H (14-36) U/L ALT 117 H (4-34) U/L Urine Appearance Cloudy H (Clear) Urine Protein 1+ H (Negative) Urine Blood Large H (Negative) Ur Leukocyte Esterase Moderate H (Negative) Urine RBC 60 H (0-5) /hpf Urine WBC 16 H (0-5) /hpf Urine Mucus Rare H (None) /hpf 10/25/24 Range/Units 07:30 WBC 18.65 H (3.8-10.6) k/uL RBC 3.03 L (4.10-5.20) X 10*6/uL Hgb 8.8 L (12.0-15.0) g/dL Hct 27.8 L (37.2-46.3) % MCHC 31.7 L (32.0-37.0) g/dL Neutrophils # (1.3-7.7) k/uL Monocytes # (0-1.0) k/uL Sodium (137-145) mmol/L BUN (7-17) mg/dL Glucose (74-99) mg/dL Total Bilirubin (0.2-1.3) mg/dL AST (14-36) U/L ALT (4-34) U/L Urine Appearance (Clear) Urine Protein (Negative) Urine Blood (Negative) Ur Leukocyte Esterase (Negative) Urine RBC (0-5) /hpf Urine WBC (0-5) /hpf Urine Mucus (None) /hpf
--- NOTE | 2024-10-25 13:44 | P.OP ---
Date of Procedure: 10/25/24 Preoperative Diagnosis: Left ureteral calculus Postoperative Diagnosis: Same Procedure(s) Performed: Cystoscopy, left ureteral stent insertion Anesthesia: MAC Surgeon: Johnny Ronquillo Estimated Blood Loss (ml): 0 IV fluids (ml): 600 Pathology: none sent Condition: stable Disposition: PACU Indications for Procedure: This is a 53-year-old female that presented with a 5 mm left-sided proximal stone. She was also experiencing fever of 102 associated with nausea and vomiting. Does have previous history of recurrent kidney stones and has required ureteroscopy with holmium laser in the past. She was evaluated in the ER and found to have a WBC count of 33,000. She is being treated with IV hydration and antibiotics. She now comes for stent placement. Operative Findings: Left proximal ureteral calculus. Successful stent placement. Description of Procedure: The patient was taken to the operating room and placed in the dorsolithotomy position, with legs supported in Mandeep stirrups. The external genitalia was prepped and draped sterilely. The 30 lens was used to introduce the 22-Occitan Stortz cystoscopic sheath through the urethra and into the bladder under direct vision. The bladder was examined in its entirety. Both ureteral orifices were of normal anatomic location and configuration. No tumors or foreign bodies were seen. A 0.035 inch Glidewire was passed through the cystoscope. The left ureteral orifice was cannulated, and the Glidewire was slowly advanced up to the renal pelvis. Some resistance was met as the Glidewire passed beyond the proximal ureteral calculus, but ultimately the Glidewire did pass beyond the calculus and coiled within the left renal pelvis. A 24 cm, 6-Occitan double-J ureteral stent was placed over the wire. Proper stent positioning was verified fluoroscopically and endoscopically. The urine which drained through the stent did not appear purulent. The bladder was emptied and the cystoscope removed. The patient tolerated the procedure well and was taken to the recovery room in stable condition.
--- NOTE | 2024-10-25 14:32 | FL ---
EXAMINATION TYPE: FL guidance operating room DATE OF EXAM: 10/25/2024 1:53 PM COMPARISON: Pre Operative Images if available both CT/MRI or plain film CLINICAL INDICATION: Female, 53 years old with history of LEFT URETERAL STONE. TO OR FOR REMOVAL; TECHNIQUE: FL guidance operating room, multiple fluoroscopic images provided for procedure. Total fluoroscopy time: 27.8 seconds Total submitted images to PACS: 3 DAP: [id number] mGym2 Gycm2 uGym2 cGycm2 or equivalent. FINDINGS: Multiple intraoperative fluoroscopic images were taken resulting in ureteral stent placement with sup erior pigtail in appropriate position projecting over the renal pelvis. No immediate intraoperative c omplication. Multilevel degeneration changes throughout the spine. IMPRESSION: 1. No evidence for intraoperative complication. 2. Please see the operative/procedural note for further details. [facility], , 10/25/2024 2:30 PM
[2024-10-25] MEDS: TAMSULOSIN 0.4 MG CAP.ER.24H PO SCH (15:57)
[2024-10-26] MEDS ORDERED: VANCOMYCIN 1,750 MG in SODIUM CHLORIDE 0.9% 500 ML 500 ML IVPB SCH
[2024-10-26 01:46] LABS: Appearance,Urine Clear (Clear); Bacteria,Urine Rare /hpf; Bilirubin,Urine Negative (Negative); Blood,Urine Moderate (Negative); Color,Urine Light Yellow; Glucose,Urine (UA) Negative (Negative); Hyaline Casts,Urine 2 /lpf (0-2); Ketones,Urine 1+ (Negative); Leukocyte Esterase,Urine Moderate (Negative); Mucus,Urine Rare /hpf; Nitrite,Urine Negative (Negative); Protein,Urine Trace (Negative); RBC,Urine 65 /hpf (0-5); Specific Gravity,Urine 1.015 (1.001-1.035); Squamous Epithelial Cell,Urine 4 /hpf (0-4); Urobilinogen,Urine <2.0 mg/dL (<2.0); WBC,Urine 6 /hpf (0-5)
--- NOTE | 2024-10-26 08:44 | P.PN ---
Subjective Progress Note Date: 10/26/24 The patient is in the hospital with a urinary tract infection with sepsis due to an obstructing stone on the left side and secondary pyelonephrosis. She had a stent placed yesterday. She feels much better. Objective - Vital Signs Vital signs: Vital Signs Temp 98.2 F 10/26/24 07:36 Pulse 73 10/26/24 07:36 Resp 16 10/26/24 07:36 BP 155/87 10/26/24 07:36 Pulse Ox 95 10/26/24 07:36 FiO2 Intake & Output 10/25/24 10/26/24 10/26/24 18:59 06:59 18:59 Intake Total 600 2190 Balance 600 2190 Weight 113.398 kg Intake: IV 600 Oral 2190 Other: Voiding Method Toilet # Voids 1 4 - Labs CBC & Chem 7: 10/25/24 07:30 10/25/24 11:44 Labs: Abnormal Lab Results - Last 24 Hours (Table) 10/25/24 10/25/24 10/26/24 Range/Units 07:30 07:30 01:00 WBC 18.65 H (4.50-10.00) X 10*3/uL RBC 3.03 L (4.10-5.20) X 10*6/uL Hgb 8.8 L (12.0-15.0) g/dL Hct 27.8 L (37.2-46.3) % MCHC 31.7 L (32.0-37.0) g/dL Immature Gran # 0.21 H (0.00-0.04) X 10*3/uL Neutrophils # 15.49 H (1.80-7.70) X 10*3/uL Monocytes # 1.11 H (0.20-1.00) X 10*3/uL Eosinophils # 0.03 L (0.04-0.35) X 10*3/uL Potassium 2.6 A* (3.5-5.5) mmol/L Chloride 120 H (96-109) mmol/L Carbon Dioxide 15.4 L (21.6-31.8) mmol/L Creatinine 0.5 L (0.6-1.5) mg/dL BUN/Creatinine Ratio 25.80 H (12.00-20.00) Ratio Glucose 68 L (70-110) mg/dL Calcium 6.2 A* (8.7-10.3) mg/dL ALT 57 H (8-44) U/L Total Protein 4.0 L (6.2-8.2) g/dL Albumin 2.4 L (3.8-4.9) g/dL Albumin/Globulin Ratio 1.50 L (1.60-3.17) Ratio Urine Protein Trace H (Negative) Urine Ketones 1+ H (Negative) Urine Blood Moderate H (Negative) Ur Leukocyte Esterase Moderate H (Negative) Urine RBC 65 H (0-5) /hpf Urine WBC 6 H (0-5) /hpf Urine Bacteria Rare H (None) /hpf Urine Mucus Rare H (None) /hpf Microbiology - Last 24 Hours (Table) 10/24/24 19:26 Blood Culture - Preliminary Blood 10/24/24 18:03 Urine Culture - Final Urine,Voided Assessment and Plan Assessment: Impression: Urinary tract infection with sepsis due to an obstructing stone with secondary pyelonephrosis left. Status post stent placement. Recommendations: We will continue with IV antibiotics and intravenous fluids. I anticipate discharge this weekend.
--- NOTE | 2024-10-26 09:35 | P.CONS ---
History of Present Illness - Reason for Consult Consult date: 10/25/24 Complicated UTI Requesting physician: Isacc Cruz - Chief Complaint Fever left flank pain x few days - History of Present Illness Patient is a 53-year-old female with a past medical history significant for hypertension hyperlipidemia thyroid disorder, stage III met astatic melanoma and history of kidney stones presenting to the hospital for evaluation of abnormality in the outpatient testing suggestive of left-sided kidney stone causing obstruction patient also complaining of left-sided flank pain over the last few days patient described the pain to be mostly dull aching to sharp moderate intensity without radiation did have some nausea but no vomiting denies any diarrhea did have some urinary burning on presentation to the hospital the patient was afebrile no fever have been called subsequently patient was mildly tachycardic but not hypotensive or hypoxic patient did have a white count of 33.4 repeat is 18.65 creatinine has been normal liver isms mildly elevated urine has been positive cultures are pending patient has been started on 10/18/2024,the patient remains to be afebrile, patient is on room air not requiring supplemental oxygen and denies any shortness of breath no chest pain or cough.Patient denies having any nausea or vomiting, no abdominal pain and no diarrhea has been started on cefepime and vancomycin by ER physician patient was evaluated by urology and the patient is status post left ureteral stent placement infectious was consulted for complicated UTI Review of Systems Positive point and negatives has been mentioned in the HPI, complete review of systems was performed and all other systems are negative Past Medical History Past Medical History: Cancer, Hyperlipidemia, Hypertension, Thyroid Disorder Additional Past Medical History / Comment(s): Stage III metastatic melanoma with unknown primary-IMMUNOTHERAPY. Kidney stones. IBS. History of Any Multi-Drug Resistant Organisms: None Reported Past Surgical History: Cholecystectomy, Uterine Ablation Additional Past Surgical History / Comment(s): jaw sx. Surgery for kidney stones. Lymph node removal in the right inguinal region positive for metastatic melanoma 09/2020. Past Anesthesia/Blood Transfusion Reactions: No Reported Reaction Past Psychological History: No Psychological Hx Reported Smoking Status: Never smoker Past Alcohol Use History: Occasional Past Drug Use History: None Reported - Past Family History Brother(s) Additional Family Medical History / Comment(s): Heart problems including an enlarged heart and mitral valve prolapse. . Father Family Medical History: Diabetes Mellitus Additional Family Medical History / Comment(s): Grandfather had prostate cancer. Grandparents also had heart disease. Medications and Allergies Home Medications Medication Instructions Recorded Confirmed Type Acetaminophen Tab [Tylenol Tab] 500 mg PO Q6H PRN 10/24/24 10/25/24 History HYDROcodone/APAP 5-325MG [[place] 1 tab PO Q6H PRN 10/24/24 10/25/24 History 5-325] Ibuprofen [Motrin Ib] 400 mg PO Q6H PRN 10/24/24 10/25/24 History Levothyroxine Sodium [Synthroid] 175 mcg PO DAILY 10/24/24 10/25/24 History Losartan Potassium 100 mg PO DAILY 10/24/24 10/25/24 History Ondansetron Odt [Zofran Odt] 4 mg PO Q8H PRN 10/24/24 10/25/24 History Rosuvastatin [Crestor] 10 mg PO HS 10/24/24 10/25/24 History Tamsulosin HCl [Flomax] 0.4 mg PO DAILY@1300 10/24/24 10/25/24 History Vitamin D3(Unknown Dose) 1 tab PO DAILY 10/24/24 10/25/24 History Botox 200 units INJ Q112D 10/25/24 10/25/24 History Allergies Allergy/AdvReac Type Severity Reaction Status Date / Time meperidine HCl [From Demerol] Allergy Anaphylaxis, Verified 10/25/24 10:13 SWELLING OF THROAT Physical Exam Vitals: Vital Signs Temp Pulse Pulse Resp BP BP Pulse Ox 10/25/24 10:28 98.6 F 97 20 142/67 96 10/25/24 10:00 98.3 F 91 18 143/83 98 10/25/24 08:44 99.0 F 92 18 143/82 96 10/25/24 06:58 89 18 123/73 96 10/25/24 03:44 98.3 F 10/25/24 03:25 100 18 111/72 98 10/25/24 00:51 92 18 115/65 96 10/24/24 22:10 99.0 F 100 18 129/69 96 10/24/24 19:35 98.2 F 99 18 131/70 97 10/24/24 17:13 98.6 F 108 H 18 138/75 94 L Intake and Output 10/24/24 10/25/24 10/25/24 22:59 06:59 14:59 Other: Weight 113.398 kg 113.398 kg GENERAL DESCRIPTION: Middle-aged female lying in bed, no distress. No tachypnea or accessory muscle of respiration use. HEENT: Shows Pallor , no scleral icterus. Oral mucous membrane is dry. No pharyngeal erythema or thrush NECK: Trachea central, no thyromegaly. LUNGS: Unlabored breathing. Clear to auscultation anteriorly. No wheeze or crackle. HEART: S1, S2, regular rate and rhythm. No loud murmur ABDOMEN: Soft, no tenderness , guarding or rigidity, no organomegaly EXTREMITIES: No edema of feet. SKIN: No rash, no masses palpable. NEUROLOGICAL: The patient is awake, alert, oriented x3, mood and affect normal. Results CBC & Chem 7: 10/25/24 07:30 10/25/24 11:44 Labs: Abnormal Lab Results - Last 24 Hours (Table) 10/24/24 10/24/24 10/24/24 Range/Units 17:47 17:47 18:03 WBC 33.4 H (3.8-10.6) k/uL RBC (4.10-5.20) X 10*6/uL Hgb (12.0-15.0) g/dL Hct (37.2-46.3) % MCHC (32.0-37.0) g/dL Neutrophils # 29.4 H (1.3-7.7) k/uL Monocytes # 1.2 H (0-1.0) k/uL Sodium 136 L (137-145) mmol/L BUN 21 H (7-17) mg/dL Glucose 103 H (74-99) mg/dL Total Bilirubin 1.4 H (0.2-1.3) mg/dL AST 67 H (14-36) U/L ALT 117 H (4-34) U/L Urine Appearance Cloudy H (Clear) Urine Protein 1+ H (Negative) Urine Blood Large H (Negative) Ur Leukocyte Esterase Moderate H (Negative) Urine RBC 60 H (0-5) /hpf Urine WBC 16 H (0-5) /hpf Urine Mucus Rare H (None) /hpf 10/25/24 Range/Units 07:30 WBC 18.65 H (3.8-10.6) k/uL RBC 3.03 L (4.10-5.20) X 10*6/uL Hgb 8.8 L (12.0-15.0) g/dL Hct 27.8 L (37.2-46.3) % MCHC 31.7 L (32.0-37.0) g/dL Neutrophils # (1.3-7.7) k/uL Monocytes # (0-1.0) k/uL Sodium (137-145) mmol/L BUN (7-17) mg/dL Glucose (74-99) mg/dL Total Bilirubin (0.2-1.3) mg/dL AST (14-36) U/L ALT (4-34) U/L Urine Appearance (Clear) Urine Protein (Negative) Urine Blood (Negative) Ur Leukocyte Esterase (Negative) Urine RBC (0-5) /hpf Urine WBC (0-5) /hpf Urine Mucus (None) /hpf Assessment and Plan (1) UTI (urinary tract infection) Current Visit: Yes Status: Acute Code(s): N39.0 - URINARY TRACT INFECTION, SITE NOT SPECIFIED SNOMED Code(s): 50761998 Plan: 1patient presented to hospital with left flank pain in this patient who did have a left-sided hydronephrosis status post cystoscopy and left ureteral stent placement positive UA elevated white count concerning for left-sided pyelonephritis complicated UTI. Likely from a gram-negative pathogen less likely gram-positive 2patient to continue cefepime 2 g every 8-hour while waiting for the culture to finalize however discontinue vancomycin to decrease risk of nephrotoxicity Question concern answered We will follow on clinical condition and cultures to further adjust medication if needed Thank you for this consultation we will follow the patient along with you Dictation was produced using [employer] dictation software. please excuse any grammatical, word or spelling errors. Time with Patient: Greater than 30
[2024-10-26 10:14] LABS: BUN/Creat Ratio 16.78 Ratio (12.00-20.00); Blood Urea Nitrogen 15.1 mg/dL (9.0-27.0); Calcium 9.1 mg/dL (8.7-10.3); Carbon Dioxide 20.2 mmol/L (21.6-31.8); Chloride 108 mmol/L (96-109); Glucose 107 mg/dL (70-110); Potassium 3.9 mmol/L (3.5-5.5); Sodium 140 mmol/L (135-145)
[2024-10-26 10:57] LABS: Basophils # (A) 0.03 X 10*3/uL (0.00-0.10); Basophils % (A) 0.2 %; Eosinophils # (A) 0.04 X 10*3/uL (0.04-0.35); Eosinophils % (A) 0.2 %; HCT 35.1 % (37.2-46.3); HGB 11.5 g/dL (12.0-15.0); Lymphocytes # (A) 1.62 X 10*3/uL (0.90-5.00); Lymphocytes % (A) 8.8 %; MCH 29.2 pg (27.0-32.0); MCHC 32.8 g/dL (32.0-37.0); MCV 89.1 FL (80.0-97.0); Mean Platelet Volume 10.9 FL (9.5-12.2); Monocytes # (A) 0.77 X 10*3/uL (0.20-1.00); Monocytes % (A) 4.2 %; NRBC Per 100 WBC 0 X 10*3/uL (0.00-0.01); Neutrophils # (A) 15.84 X 10*3/uL (1.80-7.70); Neutrophils % (A) 85.9 %; Platelet Count 246 X 10*3/uL (140-440); RBC 3.94 X 10*6/uL (4.10-5.20); RDW 14.5 % (11.5-14.5); WBC 18.42 X 10*3/uL (4.50-10.00)
--- NOTE | 2024-10-26 15:41 | P.PN ---
Subjective Progress Note Date: 10/26/24 Principal diagnosis: Reason for follow-up is leukocytosis complicated UTI Patient is a 53-year-old female with a past medical history significant for hypertension hyperlipidemia thyroid disorder, stage III metastatic melanoma and history of kidney stones status post cystoscopy and left ureteral stent placement elevated white count positive UA concerning for pyelonephritis prompted this consultation. On today's evaluation that is 10/26/2024, the patient continues to be afebrile, the patient is on room air and breathing comfortably, the Pt denies having any chest pain or cough, the patient denies having any abdominal pain no vomiting or any diarrhea still have some burning of urine reported by the . Patient white count is 18.42 creatinine 0.9 repeat UA is positive initial culture were negative Objective - Vital Signs Vital signs: Vital Signs Temp 98.2 F 10/26/24 07:36 Pulse 73 10/26/24 07:36 Resp 16 10/26/24 07:36 BP 155/87 10/26/24 07:36 Pulse Ox 95 10/26/24 07:36 FiO2 Intake & Output 10/25/24 10/26/24 10/26/24 18:59 06:59 18:59 Intake Total 600 2190 Balance 600 2190 Weight 113.398 kg Intake: IV 600 Oral 2190 Other: Voiding Method Toilet Toilet # Voids 1 4 - Labs CBC & Chem 7: 10/26/24 02:56 10/26/24 02:56 Labs: Abnormal Lab Results - Last 24 Hours (Table) 10/26/24 10/26/24 10/26/24 Range/Units 01:00 02:56 02:56 WBC 18.42 H (4.50-10.00) X 10*3/uL RBC 3.94 L (4.10-5.20) X 10*6/uL Hgb 11.5 L (12.0-15.0) g/dL Hct 35.1 L (37.2-46.3) % Immature Gran # 0.12 H (0.00-0.04) X 10*3/uL Neutrophils # 15.84 H (1.80-7.70) X 10*3/uL Carbon Dioxide 20.2 L (21.6-31.8) mmol/L Urine Protein Trace H (Negative) Urine Ketones 1+ H (Negative) Urine Blood Moderate H (Negative) Ur Leukocyte Esterase Moderate H (Negative) Urine RBC 65 H (0-5) /hpf Urine WBC 6 H (0-5) /hpf Urine Bacteria Rare H (None) /hpf Urine Mucus Rare H (None) /hpf Microbiology - Last 24 Hours (Table) 10/24/24 19:26 Blood Culture - Preliminary Blood 10/24/24 18:03 Urine Culture - Final Urine,Voided Assessment and Plan (1) UTI (urinary tract infection) Current Visit: Yes Status: Acute Code(s): N39.0 - URINARY TRACT INFECTION, SITE NOT SPECIFIED SNOMED Code(s): 48416999 (2) Leukocytosis Current Visit: Yes Status: Acute Code(s): D72.829 - ELEVATED WHITE BLOOD GRETA L COUNT, UNSPECIFIED SNOMED Code(s): 995414737 Plan: 1patient presented to hospital with left flank pain in this patient who did have a left-sided hydronephrosis status post cystoscopy and left ureteral stent placement positive UA elevated white count concerning for left-sided pyelonephritis complicated UTI. Likely from a gram-negative pathogen less likely gram-positive 2patient still have elevated white count initial urine culture negative UA has been repeated after placement of the left ureteral stent those cultures currently pending will follow and continue with the cefepime Dictation was produced using [employer] dictation software. please excuse any grammatical, word or spelling errors. Time with Patient: Less than 30
[2024-10-27] MEDS: LACTULOSE 20 GM/30 ML CUP PO ONE (00:34)
[2024-10-27] MEDS: polyethylene glycoL 3350 17 GM POWD.PACK PO SCH (07:49)
--- NOTE | 2024-10-27 10:04 | P.PN ---
Subjective Progress Note Date: 10/27/24 No acute overnight event, denies any flank pain. Is complaining of urinary urgency and frequency. Urine culture showed no growth Objective - Vital Signs Vital signs: Vital Signs Temp 97.9 F 10/27/24 07:25 Pulse 67 10/27/24 07:25 Resp 19 10/27/24 07:25 BP 147/88 10/27/24 07:25 Pulse Ox 96 10/27/24 07:25 FiO2 Intake & Output 10/26/24 10/27/24 10/27/24 18:59 06:59 18:59 Other: Voiding Method Toilet Toilet Toilet # Voids 4 - Constitutional General appearance: Present: no acute distress - Gastrointestinal General gastrointestinal: Present: soft. Absent: distended, tenderness - Psychiatric Psychiatric: Present: A&O x's 3 - Labs CBC & Chem 7: 10/26/24 02:56 10/26/24 02:56 Labs: Abnormal Lab Results - Last 24 Hours (Table) 10/26/24 10/26/24 Range/Units 02:56 02:56 WBC 18.42 H (4.50-10.00) X 10*3/uL RBC 3.94 L (4.10-5.20) X 10*6/uL Hgb 11.5 L (12.0-15.0) g/dL Hct 35.1 L (37.2-46.3) % Immature Gran # 0.12 H (0.00-0.04) X 10*3/uL Neutrophils # 15.84 H (1.80-7.70) X 10*3/uL Carbon Dioxide 20.2 L (21.6-31.8) mmol/L Microbiology - Last 24 Hours (Table) 10/24/24 19:26 Blood Culture - Preliminary Blood Assessment and Plan Assessment: 53-year-old female admitted to the hospital with a septic stone status post left stent insertion. Urine culture showed no growth. We will repeat CBC today, if continues to trend down then we will plan on discharging home with p.o. antibiotics
[2024-10-27 11:16] LABS: Basophils # (A) 0.1 k/uL (0-0.2); Basophils % (A) 1 %; Eosinophils # (A) 0.1 k/uL (0-0.7); Eosinophils % (A) 1 %; HCT 35.3 % (34.0-46.0); HGB 11.7 gm/dL (11.4-16.0); Lymphocytes # (A) 3.2 k/uL (1.0-4.8); Lymphocytes % (A) 22 %; MCH 29.1 pg (25.0-35.0); MCHC 33.1 g/dL (31.0-37.0); MCV 87.9 fL (80.0-100.0); Mean Platelet Volume 7.7; Monocytes # (A) 0.9 k/uL (0-1.0); Monocytes % (A) 6 %; Neutrophils # (A) 9.9 k/uL (1.3-7.7); Neutrophils % (A) 69 %; Platelet Count 290 k/uL (150-450); RBC 4.02 m/uL (3.80-5.40); WBC 14.5 k/uL (3.8-10.6)
[2024-10-27 14:24] VITALS: BP 143/73; PULSE 75; RESP 17; TEMP 98.2
--- NOTE | 2024-10-27 19:17 | P.PN ---
Subjective Progress Note Date: 10/26/24 53-year-old lady with past medical history significant for nephrolithiasis who presented the ER because of fever, nausea and vomiting. Patient was initially seen at urology office for similar complaints, was found to have a left sided proximal left ureteral stone. Urology told the patient to come to the ER as patient might be needing stent placement. Patient was complaining of high-grade fevers. There was no complaint of abdominal pain. There was complaint nausea and vomiting. Denies chest pain or shortness of breath. There was no complaint of orthopnea or PND. In the ER patient was worked up Initial lab work done in the ER showed WBC 23.4, hemoglobin 14, platelet count 254, sodium 160, potassium 3.9, BUN 11, creatinine 0 1.04 lactate 1.3, bilirubin 1.4, AST 16, ALT 1 17 UA done showed moderate blood, leukocyte esterase positive, urine WBC 16 Patient admitted to urology service Objective - Vital Signs Vital signs: Vital Signs Temp 98.2 F 10/26/24 07:36 Pulse 73 10/26/24 07:36 Resp 16 10/26/24 07:36 BP 155/87 10/26/24 07:36 Pulse Ox 95 10/26/24 07:36 FiO2 Intake & Output 10/25/24 10/26/24 10/26/24 18:59 06:59 18:59 Intake Total 600 2190 Balance 600 2190 Weight 113.398 kg Intake: IV 600 Oral 2190 Other: Voiding Method Toilet Toilet # Voids 1 4 - Exam GENERAL: The patient is alert and oriented x3, not in any acute distress. Well developed, well nourished. HEENT: Pupils are round and equally reacting to light. EOMI. No scleral icterus. No conjunctival pallor. Normocephalic, atraumatic. No pharyngeal erythema. No thyromegaly. CARDIOVASCULAR: S1 and S2 present. No murmurs, rubs, or gallops. PULMONARY: Chest is clear to auscultation, no wheezing or crackles. ABDOMEN: Soft, nontender, nondistended, normoactive bowel sounds. No palpable organomegaly. MUSCULOSKELETAL: No joint swelling or deformity. EXTREMITIES: No cyanosis, clubbing, or pedal edema. NEUROLOGICAL: Gross neurological examination did not reveal any focal deficits. SKIN: No rashes. - Labs CBC & Chem 7: 10/27/24 10:38 10/26/24 02:56 Labs: Abnormal Lab Results - Last 24 Hours (Table) 10/26/24 10/26/24 10/26/24 Range/Units 01:00 02:56 02:56 WBC 18.42 H (4.50-10.00) X 10*3/uL RBC 3.94 L (4.10-5.20) X 10*6/uL Hgb 11.5 L (12.0-15.0) g/dL Hct 35.1 L (37.2-46.3) % Immature Gran # 0.12 H (0.00-0.04) X 10*3/uL Neutrophils # 15.84 H (1.80-7.70) X 10*3/uL Carbon Dioxide 20.2 L (21.6-31.8) mmol/L Urine Protein Trace H (Negative) Urine Ketones 1+ H (Negative) Urine Blood Moderate H (Negative) Ur Leukocyte Esterase Moderate H (Negative) Urine RBC 65 H (0-5) /hpf Urine WBC 6 H (0-5) /hpf Urine Bacteria Rare H (None) /hpf Urine Mucus Rare H (None) /hpf Microbiology - Last 24 Hours (Table) 10/24/24 19:26 Blood Culture - Preliminary Blood 10/24/24 18:03 Urine Culture - Final Urine,Voided Assessment and Plan Assessment: Sepsis Obstructive uropathy Acute pyelonephritis Hypertension hyperlipidemia Hypothyroidism Monitor vital signs Monitor CBC Monitor CMP Ordered blood cultures Ordered urine culture Continue IV cefepime and vancomycin Ordered IV fluids Urology on board, planning cystoscopy today Resume home meds Labs and medication were reviewed.. Continue same treatment. Continue with symptomatic treatment. Resume home medication. Monitor labs and vitals. DVT and GI prophylaxis. Further recommendations as per clinical course of the patient
--- NOTE | 2024-10-27 19:19 | P.PN ---
Subjective Progress Note Date: 10/27/24 53-year-old lady with past medical history significant for nephrolithiasis who presented the ER because of fever, nausea and vomiting. Patient was initially seen at urology office for similar complaints, was found to have a left sided proximal left ureteral stone. Urology told the patient to come to the ER as patient might be needing stent placement. Patient was complaining of high-grade fevers. There was no complaint of abdominal pain. There was complaint nausea and vomiting. Denies chest pain or shortness of breath. There was no complaint of orthopnea or PND. In the ER patient was worked up Initial lab work done in the ER showed WBC 23.4, hemoglobin 14, platelet count 254, sodium 160, potassium 3.9, BUN 11, creatinine 0 1.04 lactate 1.3, bilirubin 1.4, AST 16, ALT 1 17 UA done showed moderate blood, leukocyte esterase positive, urine WBC 16 Patient admitted to urology service 10/27/2024 Patient is seen and evaluated with family at bedside Vital signs are reviewed and stable with temperature of 98.2, pulse 75, respirations 17 and blood pressure 143/73, O2 saturation 97% on room air Blood work reveals WBC trending down to 14.5, hemoglobin of 11.7 and platelet count of 290 Patient has been admitted with septic stone and is status post stent insertion; urine culture is negative to date --Neurology planning to monitor CBC with plans to discharge on oral antibiotics if WBC continues to trend down Objective - Vital Signs Vital signs: Vital Signs Temp 97.9 F 10/27/24 07:25 Pulse 67 10/27/24 07:25 Resp 19 10/27/24 07:25 BP 147/88 10/27/24 07:25 Pulse Ox 96 10/27/24 07:25 FiO2 Intake & Output 10/26/24 10/27/24 10/27/24 18:59 06:59 18:59 Other: Voiding Method Toilet Toilet Toilet # Voids 4 - Exam GENERAL: The patient is alert and oriented x3, not in any acute distress. Well developed, well nourished. HEENT: Pupils are round and equally reacting to light. EOMI. No scleral icterus. No conjunctival pallor. Normocephalic, atraumatic. No pharyngeal erythema. No thyromegaly. CARDIOVASCULAR: S1 and S2 present. No murmurs, rubs, or gallops. PULMONARY: Chest is clear to auscultation, no wheezing or crackles. ABDOMEN: Soft, nontender, nondistended, normoactive bowel sounds. No palpable organomegaly. MUSCULOSKELETAL: No joint swelling or deformity. EXTREMITIES: No cyanosis, clubbing, or pedal edema. NEUROLOGICAL: Gross neurological examination did not reveal any focal deficits. SKIN: No rashes. - Labs CBC & Chem 7: 10/27/24 10:38 10/26/24 02:56 Labs: Abnormal Lab Results - Last 24 Hours (Table) 10/27/24 Range/Units 10:38 WBC 14.5 H (3.8-10.6) k/uL Neutrophils # 9.9 H (1.3-7.7) k/uL Microbiology - Last 24 Hours (Table) 10/24/24 19:26 Blood Culture - Preliminary Blood Assessment and Plan Assessment: Sepsis Obstructive uropathy Acute pyelonephritis Hypertension hyperlipidemia Hypothyroidism Monitor vital signs Monitor CBC Monitor CMP Ordered blood cultures Ordered urine culture Continue IV cefepime and vancomycin Ordered IV fluids Urology on board, planning cystoscopy today Resume home meds Labs and medication were reviewed.. Continue same treatment. Continue with symptomatic treatment. Resume home medication. Monitor labs and vitals. DVT and GI prophylaxis. Further recommendations as per clinical course of the patient
--- NOTE | 2024-10-27 21:53 | P.PN ---
Subjective Progress Note Date: 10/27/24 Principal diagnosis: Reason for follow-up is leukocytosis complicated UTI Patient is a 53-year-old female with a past medical history significant for hypertension hyperlipidemia thyroid disorder, stage III metastatic melanoma and history of kidney stones status post cystoscopy and left ureteral stent placement elevated white count positive UA concerning for pyelonephritis prompted this consultation. On today's evaluation that is 10/27/2024, patient did not have any fever and denies any chills, patient is breathing comfortably on room air, patient with no chest pain or cough patient still complains of some left flank pain but no worsening no nausea no vomiting or diarrhea. Patient white count is down to 14.5 blood cultures pending repeat urine cultures are pending Objective - Vital Signs Vital signs: Vital Signs Temp 97.9 F 10/27/24 07:25 Pulse 67 10/27/24 07:25 Resp 19 10/27/24 07:25 BP 147/88 10/27/24 07:25 Pulse Ox 96 10/27/24 07:25 FiO2 Intake & Output 10/26/24 10/27/24 10/27/24 18:59 06:59 18:59 Other: Voiding Method Toilet Toilet Toilet # Voids 4 - Exam GENERAL DESCRIPTION: Middle-age female lying in bed in no distress RESPIRATORY SYSTEM: Unlabored breathing , decreased breath sounds at bases HEART: S1 S2 regular rate and rhythm , ABDOMEN: Soft , no tenderness EXTREMITIES: No edema feet - Labs CBC & Chem 7: 10/27/24 10:38 10/26/24 02:56 Labs: Abnormal Lab Results - Last 24 Hours (Table) 10/27/24 Range/Units 10:38 WBC 14.5 H (3.8-10.6) k/uL Neutrophils # 9.9 H (1.3-7.7) k/uL Microbiology - Last 24 Hours (Table) 10/24/24 19:26 Blood Culture - Preliminary Blood Assessment and Plan (1) UTI (urinary tract infection) Status: Acute Code(s): N39.0 - URINARY TRACT INFECTION, SITE NOT SPECIFIED SNOMED Code(s): 27125825 (2) Leukocytosis Status: Acute Code(s): D72.829 - ELEVATED WHITE BLOOD CELL COUNT, UNSPECIFIED SNOMED Code(s): 371126755 Plan: 1patient presented to hospital with left flank pain in this patient who did have a left-sided hydronephrosis status post cystoscopy and left ureteral stent placement positive UA elevated white count concerning for left-sided pyelonephritis complicated UTI. Likely from a gram-negative pathogen less likely gram-positive 2patient is afebrile the patient white count is trending down continue with the cefepime while waiting for the culture to finalize Dictation was produced using [employer] dictation software. please excuse any grammatical, word or spelling errors. Time with Patient: Less than 30
--- NOTE | 2024-10-28 10:52 | P.DS ---
Providers Date of admission: 10/24/24 19:25 Expected date of discharge: 10/27/24 Attending physician: Dhruv Grace MD Consults: 10/24/24 19:23 Consult Physician Routine Consulting Provider: Romana nAtoine Consult Reason/Comments: medical management Do you want consulting provider notified?: Yes 10/25/24 10:54 Consult Physician Routine Consulting Provider: Damion Agudelo Consult Reason/Comments: Complicated UTI Do you want consulting provider notified?: Yes Primary care physician: Tre [facility] Course: This is a 53-year-old female admitted to the hospital on October 23 with a septic left ureteral stone. Patient underwent a cystoscopy and left stent on October 24. Please see op note dated October 24 for surgery details. Her urine culture and blood culture showed no growth, patient did have a white count of 33,000 and was having fever on admission, her white count continued to trend down, and she was afebrile. She was discharged home on October 27 with 7-day course of Cipro. She will be set up for outpatient left-sided ureteroscopy with holmium laser. At time of discharge she was tolerating a diet, ambulating, pain was controlled Patient Condition at Discharge: Fair Plan - Discharge Summary Discharge Rx Participant: Yes New Discharge Prescriptions: New Ciprofloxacin HCl [Cipro] 500 mg PO BID 7 Days #14 tab Ciprofloxacin HCl [Cipro] 500 mg PO BID 7 Days #14 tab No Action Ibuprofen [Motrin Ib] 400 mg PO Q6H PRN PRN Reason: Pain Acetaminophen Tab [Tylenol Tab] 500 mg PO Q6H PRN PRN Reason: Pain Levothyroxine Sodium [Synthroid] 175 mcg PO DAILY Tamsulosin HCl [Flomax] 0.4 mg PO DAILY@1300 Ondansetron Odt [Zofran Odt] 4 mg PO Q8H PRN PRN Reason: Nausea And Vomiting HYDROcodone/APAP 5-325MG [[place] 5-325] 1 tab PO Q6H PRN PRN Reason: Pain Botox 200 units INJ Q112D Vitamin D3(Unknown Dose) 1 tab PO DAILY Losartan Potassium 100 mg PO DAILY Rosuvastatin [Crestor] 10 mg PO HS Discharge Medication List Acetaminophen Tab [Tylenol Tab] 500 mg PO Q6H PRN 10/24/24 [History] HYDROcodone/APAP 5-325MG [[place] 5-325] 1 tab PO Q6H PRN 10/24/24 [History] Ibuprofen [Motrin Ib] 400 mg PO Q6H PRN 10/24/24 [History] Levothyroxine Sodium [Synthroid] 175 mcg PO DAILY 10/24/24 [History] Losartan Potassium 100 mg PO DAILY 10/24/24 [History] Ondansetron Odt [Zofran Odt] 4 mg PO Q8H PRN 10/24/24 [History] Rosuvastatin [Crestor] 10 mg PO HS 10/24/24 [History] Tamsulosin HCl [Flomax] 0.4 mg PO DAILY@1300 10/24/24 [History] Vitamin D3(Unknown Dose) 1 tab PO DAILY 10/24/24 [History] Botox 200 units INJ Q112D 10/25/24 [History] Ciprofloxacin HCl [Cipro] 500 mg PO BID 7 Days #14 tab 10/27/24 [Rx] Ciprofloxacin HCl [Cipro] 500 mg PO BID 7 Days #14 tab 10/27/24 [Rx] Follow up Appointment(s)/Referral(s): Dhruv Grace MD [STAFF PHYSICIAN] - 1 Week (Office is closed at time of discharge. Please call for follow-up appointment.) Tre Teresa DO [Primary Care Provider] - 1-2 days (Office is closed at time of discharge. Please call for follow-up appointment.) Discharge Disposition: HOME SELF-CARE
== END 2024-10-27 14:49 | disposition home or self-care (01) | DRG 854 ==
LOC: EC 17:09 → 4SSUR 19:25
PROVIDERS: ADMIT Urology; ATTEND Urology
PROC: 0T778DZ Dilation of Left Ureter with Intraluminal Device, Via Natural or Artificial Opening Endoscopic (ICD-10-PCS; principal; 2024-10-25 11:05)
DX: A41.9 Sepsis, unspecified organism (principal); N13.6 Pyonephrosis; E03.9 Hypothyroidism, unspecified; I10 Essential (primary) hypertension; E78.5 Hyperlipidemia, unspecified; Z79.890 Hormone replacement therapy; Z88.8 Allergy status to other drugs, medicaments and biological substances; Z85.820 Personal history of malignant melanoma of skin; Z79.899 Other long term (current) drug therapy; Z87.442 Personal history of urinary calculi
CPT/HCPCS: 36415; 80048; 80053; 81001; 81025; 83605; 83690; 84132; 85025; 87040; 87086; 96365; 96366; 96368; 96372; 96375; 96376; 99285

== ENCOUNTER 2024-11-06 08:32 | Day surgery (SDC) | payer BC ==
--- NOTE | 2024-11-02 13:05 | P.HPIHPCON ---
History of Present Illness H&P Date: 11/02/24 Chief Complaint: Left ureteral stone This is a 53-year-old female with history of a 5 mm left-sided septic ureteral stone status post stent insertion on October 26. Discussed with her the option of left-sided ureteroscopy with holmium laser to address her stone. Risk-benef it and rationale of surgery was discussed with details. Aware of the risk which includes but not limited to bleeding, infection, injury to the ureter Consent for Procedure: I have explained the operation/procedure to the patient, including the risks, benefits, side effects, alternative therapies (including not receiving the proposed treatment or service), the likelihood of the patient achieving his/her goals, and potential recuperation problems for the procedure/sedation/analgesia, as well as any blood products, if indicated. I also explained to the patient the risks, benefits and side effects of the alternatives, as well as the risks related to not receiving the proposed procedure, care, treatment, or services. Past Medical History Past Medical History: Cancer, Hyperlipidemia, Hypertension, Thyroid Disorder Additional Past Medical History / Comment(s): Stage III metastatic melanoma with unknown primary. Kidney stones. IBS. History of Any Multi-Drug Resistant Organisms: None Reported Past Surgical History: Cholecystectomy, Uterine Ablation Additional Past Surgical History / Comment(s): jaw sx. Surgery for kidney stones. Lymph node removal in the right inguinal region positive for metastatic melanoma 09/2020. Past Anesthesia/Blood Transfusion Reactions: No Reported Reaction Smoking Status: Never smoker - Past Family History Brother(s) Additional Family Medical History / Comment(s): Heart problems including an enlarged heart and mitral valve prolapse. . Father Family Medical History: Diabetes Mellitus Additional Family Medical History / Comment(s): Grandfather had prostate cancer. Grandparents also had heart disease. Medications and Allergies Home Medications Medication Instructions Recorded Confirmed Type Acetaminophen Tab [Tylenol Tab] 500 mg PO Q6H PRN 10/24/24 11/01/24 History HYDROcodone/APAP 5-325MG [[place] 1 tab PO Q6H PRN 10/24/24 11/01/24 History 5-325] Ibuprofen [Motrin Ib] 400 mg PO Q6H PRN 10/24/24 11/01/24 History Levothyroxine Sodium [Synthroid] 175 mcg PO DAILY 10/24/24 11/01/24 History Losartan Potassium 100 mg PO DAILY 10/24/24 11/01/24 History Ondansetron Odt [Zofran Odt] 4 mg PO Q8H PRN 10/24/24 11/01/24 History Rosuvastatin [Crestor] 10 mg PO HS 10/24/24 11/01/24 History Tamsulosin HCl [Flomax] 0.4 mg PO DAILY@1300 10/24/24 11/01/24 History Vitamin D3(Unknown Dose) 1 tab PO DAILY 10/24/24 11/01/24 History Botox 200 units INJ Q112D 10/25/24 11/01/24 History Ciprofloxacin HCl [Cipro] 500 mg PO BID 7 Days #14 tab 10/27/24 11/01/24 Rx Torodol 10 mg PO Q6H PRN 11/01/24 11/01/24 History Allergies Allergy/AdvReac Type Severity Reaction Status Date / Time meperidine HCl [From Demerol] Allergy Anaphylaxis, Verified 11/01/24 16:32 SWELLING OF THROAT Surgical - Exam - General no distress, moderate pain - Eyes normal ocular movement, no pale - ENT normal nares, normal mucosa - Respiratory normal expansion, normal respiratory effort - Abdomen Abdomen: soft, non tender - Psychiatric oriented to time, oriented to person, oriented to place Assessment and Plan Assessment: OR for left-sided ureteroscopy, holmium laser lithotripsy, stone basketing and stent removal
--- NOTE | 2024-11-06 08:55 | XR ---
EXAMINATION TYPE: XR KUB DATE OF EXAM: 11/06/2024 COMPARISON: CT chest abdomen and pelvis 03/23/2024, KUB radiograph 11/19/2019 HISTORY: Kidney stones TECHNIQUE: Single supine KUB image of the abdomen is obtained FINDINGS: Small bowel demonstrates no evidence for dilatation or air fluid levels. Gas and fecal material is seen in non-distended colon. No convincing evidence for pneumoperitoneum. Left ureteral stent identified. No definitive renal calculi. There are 2 suggested adjacent calculi i n the region of the left proximal ureter measuring 5 and 3 mm. The lung bases are clear. The osseous structures are intact. IMPRESSION: 1. Overall nonobstructive bowel gas pattern. 2. Left ureteral stent with 2 suggested calculi within the region of the left proximal ureter. [facility], , 11/06/2024 8:52 AM
[2024-11-06] MEDS: DEXAMETHASONE SOD PHOSPHATE 4 MG/ML 1 ML VIAL IV ONE (09:34)
[2024-11-06] MEDS: ONDANSETRON 4 MG/2 ML VIAL IVP ONE (09:34)
[2024-11-06] MEDS: LACTATED RINGERS 1,000 ML IV SCH (09:34)
[2024-11-06] MEDS: IV FLUID CONTINUATION 1,000 ML IV ONE (09:37)
[2024-11-06] MEDS ORDERED: fentaNYL (PF) 50 MCG/ML 2 ML AMP ONE (10:10)
[2024-11-06] MEDS ORDERED: PROPOFOL 10 MG/ML 20 ML VIAL IV ONE (10:10)
[2024-11-06] MEDS ORDERED: LIDOCAINE 1% INJ 10MG/ML (20 ML MDV) ONE (10:10)
[2024-11-06 11:02] VITALS: TEMP 97
--- NOTE | 2024-11-06 11:11 | FL ---
Intraoperative/procedural fluoroscopic services were provided for cystoscopy left kidney stone. Total fluoroscopy time is 6 seconds with a total of 2 submitted images to PACS. Total DAP [id number] mGym2. Please see the operative note for further details. [facility], , 11/06/2024 11:09 AM
[2024-11-06] MEDS: fentaNYL (PF) 50 MCG/ML 2 ML AMP IV PRN (11:23)
[2024-11-06 11:40] VITALS: RESP 16
[2024-11-06 11:59] VITALS: BP 143/87; PULSE 74
--- NOTE | 2024-11-06 15:00 | P.OP ---
Date of Procedure: 11/06/24 Preoperative Diagnosis: Left ureteral stone Postoperative Diagnosis: Same Procedure(s) Performed: Left ureteroscopy, holmium laser lithotripsy, stone basketing stent removal Implants: None Anesthesia: NATALIYAA Surgeon: Dhruv Grace Estimated Blood Loss (ml): 1 Pathology: other (Left ureteral stone) Condition: stable Disposition: PACU Indications for Procedure: This is a 53-year-old female with history of a 5 mm left-sided septic ureteral stone status post stent insertion on October 26. Discussed with her the option of left-sided ureteroscopy with holmium laser to address her stone. Risk- benefit and rationale of surgery was discussed with details. Aware of the risk which includes but not limited to bleeding, infection, injury to the ureter Operative Findings: Left-sided proximal stone, left midpole stone Description of Procedure: Patient brought to the operating room, general anesthesia was induced. She was prepped and draped in sterile fashion and placed in dorsolithotomy position. Cystoscopy fitted with a 21 Greek sheath was inserted per urethra, cystoscopy was performed showed no abnormality within the bladder. At this point the stent was grasped and removed intact. As the stent was removed a sensor wire was advanced through. The wire was advanced under fluoroscopy into the kidney. Next an 1113 Greek access sheath was passed over the wire and into the proximal ureter, of note the stone was radiopaque and the access sheath was advanced distal to the stone. At this time the flexible ureteroscope was inserted through the access sheath, stone was encountered in the proximal ureter. Using the holmium laser the stone was fragmented, stone fragments were removed using the stone basket. At this time the scope was advanced into the kidney, renoscopy was performed showed a an additional stone in the midpole that was basketed and removed intact. Repeat renoscopy showed no additional stones, pullback ureteroscopy was performed showed no injury to the ureter or any ureteral stones. The bladder was emptied at the end of the case. Patient tolerated procedure well was taken to recovery in stable condition
== END 2024-11-06 12:34 | disposition home or self-care (01) ==
LOC: OR 08:32
PROVIDERS: ATTEND Urology
DX: N20.2 Calculus of kidney with calculus of ureter (principal); I10 Essential (primary) hypertension; E78.5 Hyperlipidemia, unspecified; E03.9 Hypothyroidism, unspecified; K58.9 Irritable bowel syndrome, unspecified; Z79.899 Other long term (current) drug therapy; Z85.820 Personal history of malignant melanoma of skin; Z79.890 Hormone replacement therapy; Z90.49 Acquired absence of other specified parts of digestive tract; Z98.890 Other specified postprocedural states; Z88.5 Allergy status to narcotic agent; Z87.442 Personal history of urinary calculi
CPT/HCPCS: 82365; 74018; 52353; 52352; C1769; J1100; J0690; J2405; J2003; J3010; J2704

== ENCOUNTER → 2025-04-08 | Outpatient (CLI) | payer BC ==
--- NOTE | 2025-04-08 18:50 | CT ---
EXAMINATION TYPE: CT ChestAbdPelvis w con CT DLP: 1271 mGycm, Automated exposure control for dose reduction was used. DATE OF EXAM: 04/08/2025 5:01 PM COMPARISON: Multiple CT chest abdomen pelvis with most recent 03/23/2024 CLINICAL INDICATION:Female, 54 years old with history of C43.8 MELANOMA; PHH, HX OF MELANOMA Technique: Multiple axial images of the chest, abdomen, and pelvis were obtained following the intrav enous administration of 100 mL Isovue-300. Oral contrast was administered. Two-dimensional coronal an d sagittal reconstructions were obtained. Findings: CHEST: LUNGS/ PLEURA: Stable left lower lobe superior segment peripheral pulmonary nodule measuring 5 mm malachi ing back to at least 07/21/2021 (series 4, image 16). Considered benign. No new or enlarging pulmonar y nodules. No pleural effusion, pneumothorax, or focal consolidation. AIRWAY: Patent and unremarkable. HEART: Borderline-enlarged.No pericardial effusion. No significant coronary arterial calcifications. MEDIASTINUM: No evidence of adenopathy. VASCULATURE: No aortic aneurysm. MUSCULOSKELETAL: No acute osseous abnormalities. No aggressive osseous lesion. SOFT TISSUES/LYMPH NODES: Dystrophic calcification within the right breast. LOWER NECK: No significant findings. ABDOMEN: ABDOMEN LIVER: Arterial enhancing 6 mm focus in the right hepatic lobe is unchanged from prior. No new suspic ious hepatic lesions. Diffusely hypoattenuating. GALLBLADDER AND BILE DUCTS: The gallbladder surgically absent. No biliary ductal dilatation. PANCREAS: Unremarkable. SPLEEN: Unremarkable. ADRENAL GLANDS: Unremarkable. KIDNEYS AND URETERS: No evidence of hydronephrosis or renal calculi. Bilateral simple appearing renal cysts redemonstrated. Largest cyst within the left kidney measuring up to 1.8 cm. No follow-up recom mended. Contrasted calculi within both collecting systems on the delayed phase. PELVIS BLADDER: Unremarkable REPRODUCTIVE: Unremarkable. ABDOMEN & PELVIS STOMACH AND BOWEL: Stomach and duodenum are unremarkable. Enteric contrast reaches the descending col on. No focal bowel wall thickening or surrounding inflammatory changes. The appendix is within normal limits. No evidence of bowel obstruction. PERITONEUM: No evidence of pneumoperitoneum or free fluid. VASCULATURE: No evidence of aortic aneurysm. MUSCULOSKELETAL: No acute osseous abnormalities. No aggressive osseous lesion. Stable benign bone wit hin the right superior pubic ramus. LYMPH NODES: No evidence for lymphadenopathy. SOFT TISSUE/ABDOMINAL WALL: Surgical changes within the right inguinal region redemonstrated. IMPRESSION: 1. No evidence for of recurrent or metastatic disease. 2. Stable left lower lobe superior segment nodule from multiple prior exams and considered benign. 3. Stable arterial phase enhancing focus within the right hepatic lobe measuring 6 mm when compared to 07/21/2021. Suggesting benign etiology. Probable flash filling hemangioma or vascular shunt. [facility], , 04/08/2025 6:48 PM
== END | disposition home or self-care (01) ==
LOC: RADCTMAIN 14:48
PROVIDERS: ATTEND Internal Medicine Hematology & Oncology
DX: C43.8 Malignant melanoma of overlapping sites of skin (principal); R91.1 Solitary pulmonary nodule; K76.89 Other specified diseases of liver
CPT/HCPCS: 71260; 74177; Q9967